=== PATIENT | female | born 1970 | race Caucasian/White ===

== ENCOUNTER → 2016-10-31 | Outpatient (CLI) | payer OTHER ==
--- NOTE | 2016-11-01 08:50 | MM ---
Reason for exam: screening (asymptomatic). Last mammogram was performed 1 year ago. Physical Findings: A clinical breast exam by your physician is recommended on an annual basis and results should be correlated with mammographic findings. MG 3D Screening Mammo W/Cad Bilateral CC and MLO view(s) were taken. Prior study comparison: October 23, 2015, bilateral MG 3d diag mammo w/cad [facility]. March 26, 2015, right breast MG work up mamm w CAD RT. The breast tissue is heterogeneously dense. This may lower the sensitivity of mammography. No significant changes when compared with prior studies. ASSESSMENT: Benign, BI-RAD 2 RECOMMENDATION: Routine screening mammogram of both breasts in 1 year.
== END | disposition home or self-care (01) ==
LOC: RADMAMWWP 15:27
PROVIDERS: ATTEND Family Medicine
DX: Z12.31 Encounter for screening mammogram for malignant neoplasm of breast (principal)
CPT/HCPCS: 77063; G0202

== ENCOUNTER 2016-12-26 23:00 | Emergency (ER) | payer OTHER ==
[2016-12-26 23:18] VITALS: TEMP 98.6
--- NOTE | 2016-12-27 00:31 | ED ---
General Adult HPI - General Chief complaint: Extremity Injury, Lower Stated complaint: Ankle injury Time Seen by Provider: 12/27/16 00:05 Source: patient, family, RN notes reviewed Mode of arrival: ambulatory Limitations: no limitations - History of Present Illness Initial comments: Chief complaint history of present illness this is a 46-year-old female complaint of discomfort to the medial right ankle. Patient reports that she thinks she just slightly twisted it last night around 9 PM on a stick walking up her driveway. Patient reports didn't hurt much at the time but she removed ability started hurt throughout the day became more comfortable. Patient has a small area of redness just proximal to the medial malleolus the left ankle area. No pain to the toes or foot. No pain to the knee. - Related Data Previous Rx's Medication Instructions Recorded Ibuprofen [Motrin] 400 mg PO Q6HR PRN #20 tab 12/27/16 Allergies Allergy/AdvReac Type Severity Reaction Status Date / Time lisinopril Allergy Unknown Verified 12/26/16 23:18 Review of Systems ROS Statement: Those systems with pertinent positive or pertinent negative responses have been documented in the HPI. Review of systems no complaint of any other problems. Past medical problems significant for hypertension and thyroid disorder. Surgeries tubal ligation. Family history father of lung cancer mother had COPD. The patient has ALLERGIES to lisinopril. Nonsmoker drinks alcohol socially. ROS Other: All systems not noted in ROS Statement are negative. Past Medical History Past Medical History: Hypertension, Thyroid Disorder History of Any Multi-Drug Resistant Organisms: None Reported Past Surgical History: Tubal Ligation Past Psychological History: No Psychological Hx Reported Smoking Status: Never smoker Past Alcohol Use History: Occasional Past Drug Use History: None Reported General Exam - General Exam Comments Initial Comments: Physical examination pertinent to the patient's visit was to the right leg and knee is normal. The foot is normal. The patient has a small red area just proximal to the medial malleolus on the right ankle. Neurovascular status is intact. Tenderness with palpation. Discomfort with weightbearing. The patient had no other complaints. Denies falling or injuring her upper extremities. No past history of gout. Limitations: no limitations Course Vital Signs 12/26/16 23:14 Temperature 98.6 F Pulse Rate 88 Respiratory 18 Rate Blood Pressure 151/78 O2 Sat by Pulse 98 Oximetry Medical Decision Making - Medical Decision Making X-ray of the ankle was done in multiple views. Just above the malleolus appears to be either a retained foreign body or small avulsion fracture has been there for a prolonged period of time. In that same area on the ankle as a small red dot where the patient may have gotten a foreign body but she can't remember ever happening in her lifetime. Ankle mortise otherwise well maintained. The patient will be referred to orthopedics for further evaluation. Disposition Clinical Impression: Sprain of ankle, right Disposition: HOME SELF-CARE Condition: Stable Instructions: Ankle Sprain (ED) Additional Instructions: Ice elevate rest use ibuprofen 400 mg every 6 hours for pain. Follow-up with family physician and orthopedic surgeon on-call for further evaluation if discomfort persists. Prescriptions: Ibuprofen [Motrin] 400 mg PO Q6HR PRN #20 tab PRN Reason: Pain Time of Disposition: 00:54
[2016-12-27] MEDS ORDERED: IBUPROFEN 400 MG TAB PO STA (00:52)
--- NOTE | 2016-12-27 01:08 | XR ---
EXAM: XR Right Ankle Complete, 3 or More Views. CLINICAL HISTORY: Reason: Twisted right ankle, medial pain TECHNIQUE: Frontal, lateral and oblique views of the right ankle. COMPARISON: None FINDINGS: Bones/joints: Small ossifications/densities adjacent to the protuberance along the distal right medial tibia may represent small fracture fragments. No other acute fracture identified. No dislocation. Ankle mortise is intact. No bony lesion. No joint effusion. Soft tissues: Soft tissue swelling overlying is the distal medial tibia. IMPRESSION: Small ossification/densities adjacent to the protuberance along the distal right medial tibia may represent small fracture fragments given the overlying focal soft tissue swelling.
[2016-12-27 01:15] VITALS: BP 157/72; PULSE 82; RESP 16
== END 2016-12-27 01:14 | disposition home or self-care (01) ==
LOC: EC 23:00
DX: S93.401A Sprain of unspecified ligament of right ankle, initial encounter (principal); Z88.8 Allergy status to other drugs, medicaments and biological substances; X50.1XXA Overexertion from prolonged static or awkward postures, initial encounter; Y93.01 Activity, walking, marching and hiking; Y92.89 Other specified places as the place of occurrence of the external cause
CPT/HCPCS: 99283

== ENCOUNTER 2017-05-30 14:21 | Emergency (ER) | payer OTHER ==
[2017-05-30] MEDS ORDERED: DIPH,PERTUS(ACELL)TETVAC-LF 0.5 ML VIAL IM ONE (15:27)
--- NOTE | 2017-05-30 15:39 | ED ---
General Adult HPI - General Chief complaint: Wound/Laceration Stated complaint: Laceration on Rt hand Time Seen by Provider: 05/30/17 15:15 Source: patient, RN notes reviewed Mode of arrival: ambulatory Limitations: no limitations - History of Present Illness Initial comments: 46-year-old female presents to the emergency department with a chief complaint of right hand laceration. Patient was cleaning a glass. Since her hands and cut her. Patient states she does not recall her last tetanus. Patient states she has pain with movement still no pain. Patient denies any other injuries from the incident. Patient denies numbness or tingling.Patient denies any recent fever, chills, shortness of breath, chest pain, back pain, abdominal pain , nausea vomiting, numbness or tingling, dysuria or hematuria, constipation or diarrhea, headaches or visual changes, or any other current symptoms. - Related Data Previous Rx's Medication Instructions Recorded Ibuprofen [Motrin] 400 mg PO Q6HR PRN #20 tab 12/27/16 Allergies Allergy/AdvReac Type Severity Reaction Status Date / Time lisinopril Allergy Unknown Verified 05/30/17 14:38 Review of Systems ROS Statement: Those systems with pertinent positive or pertinent negative responses have been documented in the HPI. ROS Other: All systems not noted in ROS Statement are negative. Past Medical History Past Medical History: Hypertension, Thyroid Disorder History of Any Multi-Drug Resistant Organisms: None Reported Past Surgical History: Tubal Ligation Past Psychological History: No Psychological Hx Reported Smoking Status: Never smoker Past Alcohol Use History: Occasional Past Drug Use History: None Reported General Exam - General Exam Comments Initial Comments: General: The patient is awake and alert, in no distress, and does not appear acutely ill. Neck: The neck is supple, there is no tenderness. Cardiovascular: There is a regular rate and rhythm. No murmur, rub or gallop is appreciated. Respiratory: Lungs are clear to auscultation, respirations are non-labored, breath sounds are equal. No wheezes, stridor, rales, or rhonchi. Musculoskeletal: Sensation intact with 2+ pulses throughout the right lower extremity. Full range of motion of the right hand and all digits. 5 out of 5 muscle strength testing. There is a for similar laceration of the base of the right thumb. Range of motion of the right wrist. Neurological: CN II-XII intact, There are no obvious motor or sensory deficits. Coordination appears grossly intact. Speech is normal. Skin: Skin is warm and dry and no rashes or lesions are noted. Psychiatric: Normal mood and affect. Limitations: no limitations Course Vital Signs 05/30/17 14:35 Temperature 98.1 F Pulse Rate 82 Respiratory 20 Rate Blood Pressure 140/89 O2 Sat by Pulse 99 Oximetry Procedures - Procedures Initial comment: The skin was anesthetized with 1% lidocaine. The laceration was then cleansed with Betadine and irrigated with normal saline. The wound was inspected, and there was no evidence of injury to deep structures. No foreign body was noted in the wound. A total of 6 skin sutures were placed utilizing 5-0 nylon to a right thumb laceration of 4 cm in length. Medical Decision Making - Medical Decision Making 46-year-old female presents emergency room chief complaint of right hand laceration. At this time patient an x-ray and suture repair. Discussed care follow-up return parameters outpatient family's questions. They state Louie they're in agreement the plan. They will be discharged home. - Radiology Data Radiology results: report reviewed, image reviewed Disposition Clinical Impression: Laceration of right hand Disposition: HOME SELF-CARE Condition: Stable Instructions: Care For Your Stitches (ED), Laceration (ED) Additional Instructions: Please use medication as discussed. Please follow up with family doctor if symptoms have not improved over the next two days. Please return to the emergency room if your symptoms increase or worsen or for any other concerns. Please return to the emergency room in 8-10 days to have sutures removed. Please leave wound covered for the first 24-48 hours and then leave open to air after that time. Please use clean soap and water to clean the suture area to prevent scabbing over the top of your sutures. Please watch for any signs of infection which may include but not limited to increased pain, swelling, redness , fever or chills. Please return to the emergency room if any signs of infection do occur. Please return to the emergency room for any other concerns or complications. Referrals: Fabian Barraza III, MD [Primary Care Provider] - 1-2 days Time of Disposition: 16:05
--- NOTE | 2017-05-30 15:43 | XR ---
Right hand HISTORY: Laceration between first and second metacarpophalangeal joints 3 views of the right hand No comparisons There is no radiopaque foreign body evident. No fracture or dislocation. Bone mineralization, joint s paces and alignment are maintained. Metallic ring present at the ring finger proximally. Lucency pres ent at the soft tissues between the first and second digits. IMPRESSION: Findings compatible with patient's history of laceration.
[2017-05-30 16:25] VITALS: BP 143/80; PULSE 76; RESP 16; TEMP 98
== END 2017-05-30 16:24 | disposition home or self-care (01) ==
LOC: EC 14:21
DX: S61.411A Laceration without foreign body of right hand, initial encounter (principal); Z23 Encounter for immunization; Z88.8 Allergy status to other drugs, medicaments and biological substances; W25.XXXA Contact with sharp glass, initial encounter
CPT/HCPCS: 12002; 90471; 90715; 99283

== ENCOUNTER 2017-10-06 08:07 | Emergency (ER) | payer OTHER ==
[2017-10-06 08:13] VITALS: BP 179/94; PULSE 88; RESP 18; TEMP 97.1
--- NOTE | 2017-10-06 08:49 | ED ---
General Adult HPI - General Chief complaint: Fall Stated complaint: LACERATION, HEAD INJURY Time Seen by Provider: 10/06/17 08:15 Source: patient, RN notes reviewed Mode of arrival: ambulatory Limitations: no limitations - History of Present Illness Initial comments: Patient is a 47-year-old female who presents emergency room today with a chief complaint of a laceration to the right side of the face. She states that she tripped in her head on a edge of a cabinet causing this laceration. She states her tetanus is up-to-date. She denies any loss of consciousness. Denies any other complaints or symptoms. Patient denies any recent fever, chills, shortness of breath, chest pain, back pain, abdominal pain, nausea or vomiting, numbness or tingling, headaches or visual changes, or any other complaints. - Related Data Home Medications Medication Instructions Recorded Confirmed Levothyroxine Sodium [Synthroid] 50 mcg PO DAILY 10/06/17 10/06/17 Losartan-Hctz 50-12.5 mg [Hyzaar 0.5 tab PO DAILY 10/06/17 10/06/17 50-12.5] Allergies Allergy/AdvReac Type Severity Reaction Status Date / Time lisinopril Allergy Unknown Verified 10/06/17 08:26 Review of Systems ROS Statement: Those systems with pertinent positive or pertinent negative responses have been documented in the HPI. ROS Other: All systems not noted in ROS Statement are negative. Past Medical History Past Medical History: Hypertension, Thyroid Disorder History of Any Multi-Drug Resistant Organisms: None Reported Past Surgical History: Tubal Ligation Past Psychological History: No Psychological Hx Reported Smoking Status: Never smoker Past Alcohol Use History: Occasional Past Drug Use History: None Reported General Exam - General Exam Comments Initial Comments: General: The patient is awake and alert, in no distress, and does not appear acutely ill. Eye: Pupils are equal, round and reactive to light, extra-ocular movements are intact. No nystagmus. There is normal conjunctiva bilaterally. No signs of icterus. Ears, nose, mouth and throat: There are moist mucous membranes and no oral lesions. Neck: The neck is supple, there is no tenderness or JVD. Musculoskeletal: Normal ROM, no tenderness. Strength 5/5. Sensation intact. Pulses equal bilaterally 2+. Neurological: A&O x 3. CN II-XII intact, There are no obvious motor or sensory deficits. Coordination appears grossly intact. Speech is normal. Skin: Patient does have a 2 cm linear laceration running on an angle to the right side of the face lateral to the right eye Psychiatric: Cooperative, appropriate mood & affect, normal judgment. Limitations: no limitations Course Vital Signs 10/06/17 08:10 Temperature 97.1 F L Pulse Rate 88 Respiratory 18 Rate Blood Pressure 179/94 O2 Sat by Pulse 99 Oximetry Procedures - Procedures Initial comment: 2 cm linear laceration to the right face.The skin was anesthetized with 1% lidocaine. The laceration was then cleansed with and irrigated with normal saline. The wound was inspected, and there was no evidence of injury to deep structures. No foreign body was noted in the wound. A total of 5 skin sutures were placed utilizing 5-0 nylon. Disposition Clinical Impression: Facial laceration Disposition: HOME SELF-CARE Condition: Good Instructions: Laceration (ED) Additional Instructions: Please have sutures removed in 5 days. Please use soap and water keep area clean. Wound may stay open to air. Please return for any signs of infection which may include increased pain, swelling, redness, fever or chills. Referrals: Fabian Barraza III, MD [Primary Care Provider] - 1-2 days Time of Disposition: 08:47
== END 2017-10-06 08:54 | disposition home or self-care (01) ==
LOC: EC 08:07
DX: S05.31XA Ocular laceration without prolapse or loss of intraocular tissue, right eye, initial encounter (principal); I10 Essential (primary) hypertension; E07.9 Disorder of thyroid, unspecified; Z88.8 Allergy status to other drugs, medicaments and biological substances; Z79.899 Other long term (current) drug therapy; W01.198A Fall on same level from slipping, tripping and stumbling with subsequent striking against other object, initial encounter
CPT/HCPCS: 12011; 99283

== ENCOUNTER → 2017-11-06 | Outpatient (CLI) | payer OTHER ==
--- NOTE | 2017-11-07 14:20 | MM ---
Reason for exam: screening (asymptomatic). Last mammogram was performed 1 year ago. Physical Findings: A clinical breast exam by your physician is recommended on an annual basis and results should be correlated with mammographic findings. MG Screening Mammo w CAD Bilateral CC and MLO view(s) were taken. Prior study comparison: October 31, 2016, bilateral MG 3d screening mammo w/cad. October 23, 2015, bilateral MG 3d diag mammo w/cad [facility]. The breast tissue is heterogeneously dense. This may lower the sensitivity of mammography. No suspicious abnormality. No significant changes when compared with prior studies. ASSESSMENT: Negative, BI-RAD 1 RECOMMENDATION: Routine screening mammogram of both breasts in 1 year.
== END | disposition home or self-care (01) ==
LOC: RADMAMWWP 14:29
PROVIDERS: ATTEND Family Medicine
DX: Z12.31 Encounter for screening mammogram for malignant neoplasm of breast (principal)
CPT/HCPCS: 77067

== ENCOUNTER → 2018-02-19 | Outpatient (CLI) | payer OTHER ==
--- NOTE | 2018-02-19 16:32 | US ---
EXAMINATION TYPE: US pelvis complete transvag DATE OF EXAM: 02/19/2018 COMPARISON: NONE CLINICAL HISTORY: R10.2 pelvic and perineal pain, N93.8 abnormal. missed the last 2 cycles, rlq cramp ing TECHNIQUE: TA and TV. Transabdominal sonographic images of the pelvis were acquired. Endovaginal s alec performed for better evaluation of the ovaries and uterus. Date of LMP: 11/30/2017 EXAM MEASUREMENTS: Uterus: 10.6 x 5.3 x 4.9 cm Endometrial Stripe: 1.1 cm Right Ovary: 3.2 x 2.7 x 2.6 cm Left Ovary: 1.5 x 1.7 x 1.4 cm 1. Uterus: Anteverted nabothian cyst seen within cervix 2. Endometrium: wnl 3. Right Ovary: 2.2cm slightly irregular walled cyst seen 4. Left Ovary: Probable involuting cyst suspected measuring 1.5 cm. 5. Bilateral Adnexa: wnl 6. Posterior cul-de-sac: wnl IMPRESSION: Right ovarian cyst is not simple appearing, consider follow-up, [employer] consult.
== END | disposition home or self-care (01) ==
LOC: RADUSWWP 14:52
PROVIDERS: ATTEND Family Medicine
DX: N93.8 Other specified abnormal uterine and vaginal bleeding (principal); R10.2 Pelvic and perineal pain
CPT/HCPCS: 76830; 76856

== ENCOUNTER → 2018-04-06 | Outpatient (CLI) | payer OTHER ==
--- NOTE | 2018-04-06 14:29 | US ---
EXAMINATION TYPE: US pelvis complete transvag DATE OF EXAM: 04/06/2018 COMPARISON: 02/19/2018 pelvic ultrasound. CLINICAL HISTORY: N83.201 Unspecified ovarian cyst, right side. Hx of right side ovarian cyst TECHNIQUE: . Transabdominal sonographic images of the pelvis were acquired. Transvaginal sonographi c images were medically necessary to better assess the following anatomy: Uterus and ovaries Date of LMP: Unsure, irregular cycles EXAM MEASUREMENTS: Uterus: 8.6 x 5.1 x 5.4 cm Endometrial Stripe: 1.0 cm Right Ovary: 2.5 x 1.5 x 1.4 cm Left Ovary: 2.4 x 1.4 x 2.0 cm 1. Uterus: Anteverted. Hypoechoic area visualized within the anterior myometrium measuring 1.6 x 1.5 x 1.5 cm, possible fibroid. Vague hyperechoic area posterior myometrium is suspicious for additional roughly 2 cm fibroid unchanged from prior. Nabothian cyst visualized with cervix. 2. Endometrium: wnl 3. Right Ovary: Thick walled cystic area visualized measuring 1.1 x 1.1 x 1.2 cm on today's exam. Th is area measured 2.2 x 2.3 x 2.0 cm on 02/19/2018. Two other simple appearing follicles visualized. 4. Left Ovary: wnl 5. Bilateral Adnexa: wnl 6. Posterior cul-de-sac: wnl Slightly irregular thin-walled cyst or cystic lesion right ovary measures 1.[address] current [address] udy diminished in size from prior felt to reflect involuting cyst. IMPRESSION: Involuting cyst right ovary noted consistent with benign etiology
== END | disposition home or self-care (01) ==
LOC: RADUSWWP 13:31
PROVIDERS: ATTEND Obstetrics & Gynecology
DX: N83.201 Unspecified ovarian cyst, right side (principal)
CPT/HCPCS: 76830; 76856

== ENCOUNTER → 2018-10-18 | Outpatient (CLI) | payer BC ==
--- NOTE | 2018-10-20 09:05 | ECHOF ---
Referral Reason:R01.1 Murmur MEASUREMENTS -------- HEIGHT: 149.9 cm WEIGHT: 52.2 kg BP: 174/98 IVSd: 0.8 cm (0.6 - 1.1) LVIDd: 3.8 cm (3.9 - 5.3) LVPWd: 0.8 cm (0.6 - 1.1) IVSs: 1.2 cm LVIDs: 2.2 cm LVPWs: 1.1 cm LA Diam: 2.4 cm (2.7 - 3.8) RVIDd: 2.7 cm (< 3.3) LAESV Index (A-L): 15.41 ml/m Ao Diam: 2.6 cm (2.0 - 3.7) AV Cusp: 1.4 cm (1.5 - 2.6) EPSS: 0.4 cm MV E Walker: 0.91 m/s MV DecT: 197 ms MV A Walker: 1.30 m/s MV E/A Ratio: 0.70 AV maxP.64 mmHg AV meanP.78 mmHg MV EF SLOPE: 72.83 mm/s (70 - 150) MV EXCURSION: 10.02 mm (> 18.000) FINDINGS -------- Resting tachycardia (HR>100bpm). This was a technically adequate study. The left ventricular size is normal. Left ventricular wall thickness is normal. Overall left vent ricular systolic function is normal with, an EF between 65 - 70 %. The right ventricle is normal in size. Normal LA size by volume 22+/-6 ml/m2. The right atrium is normal in size. There is mild aortic valve sclerosis. There is mild aortic stenosis present. Peak/mean gradient a cross the Aortic Valve is 15.64mmHg / 7.78mmHg. The mitral valve is normal. Mild tricuspid regurgitation present. Trace/mild (physiologic) pulmonic regurgitation. The aortic root size is normal. Normal inferior vena cava with normal inspiratory collapse consistent with estimated right atrial pre ssure of 5 mmHg. There is no pericardial effusion. CONCLUSIONS -------- 1. Resting tachycardia (HR>100bpm). 2. This was a technically adequate study. 3. The left ventricular size is normal. 4. Left ventricular wall thickness is normal. 5. Overall left ventricular systolic function is normal with, an EF between 65 - 70 %. 6. The right ventricle is normal in size. 7. Normal LA size by volume 22+/-6 ml/m2. 8. The right atrium is normal in size. 9. There is mild aortic valve sclerosis. 10. There is mild aortic stenosis present. 11. Peak/mean gradient across the Aortic Valve is 15.64mmHg / 7.78mmHg. 12. The mitral valve is normal. 13. Mild tricuspid regurgitation present. 14. Trace/mild (physiologic) pulmonic regurgitation. 15. The aortic root size is normal. 16. Normal inferior vena cava with normal inspiratory collapse consistent with estimated right atrial pressure of 5 mmHg. 17. There is no pericardial effusion. WRAPPER HAND: Nazanin Ye RDCS
== END | disposition home or self-care (01) ==
LOC: RADECHMAIN 16:05
PROVIDERS: ATTEND Physician Assistant Medical
DX: I35.8 Other nonrheumatic aortic valve disorders (principal); I35.0 Nonrheumatic aortic (valve) stenosis; I07.1 Rheumatic tricuspid insufficiency; I37.1 Nonrheumatic pulmonary valve insufficiency
CPT/HCPCS: 93306

== ENCOUNTER 2018-11-03 10:59 | Observation (INO) | payer BC ==
[2018-11-03] MEDS ORDERED: NITROGLYCERIN SL TABS 0.4 MG TAB SUBLINGUAL STA ×3 (11:15)
[2018-11-03] MEDS ORDERED: ASPIRIN 81 MG PO STA (11:15)
--- NOTE | 2018-11-03 11:18 | ED ---
General Adult HPI - General Chief complaint: Chest Pain Stated complaint: chest pain Time Seen by Provider: 11/03/18 11:08 Source: patient, RN notes reviewed Mode of arrival: ambulatory Limitations: no limitations - History of Present Illness Initial comments: Patient is a pleasant 48-year-old female presenting to the emergency Department with complaints of chest discomfort. Symptoms have been waxing and waning over the past week. Discomfort is currently 6/10. Symptoms worsened with exertion, especially shoveling snow. Discomfort feels a pressure in the central chest. No radiation. When symptoms worsen there is associated dyspnea, nausea, and diaphoresis however none of that at this point. No history of similar symptoms previously. - Related Data Home Medications Medication Instructions Recorded Confirmed Losartan-Hctz 50-12.5 mg [Hyzaar 1 tab PO DAILY 10/06/17 11/03/18 50-12.5] Cyanocobalamin (Vitamin B-12) 1,000 mcg PO DAILY 11/03/18 11/03/18 [Vitamin B-12] Fluticasone Nasal [place] [Flonase 1 spray EA NOSTRIL DAILY PRN 11/03/18 11/03/18 Nasal [place]] Ibuprofen [Motrin] 400 - 800 mg PO Q6HR PRN 11/03/18 11/03/18 Levothyroxine Sodium [Synthroid] 88 mcg PO DAILY 11/03/18 11/03/18 Allergies Allergy/AdvReac Type Severity Reaction Status Date / Time lisinopril Allergy Unknown Verified 11/03/18 11:28 Review of Systems ROS Statement: Those systems with pertinent positive or pertinent negative responses have been documented in the HPI. ROS Other: All systems not noted in ROS Statement are negative. Constitutional: Denies: fever Eyes: Denies: eye pain ENT: Denies: ear pain Respiratory: Reports: as per HPI. Denies: cough Cardiovascular: Reports: as per HPI, chest pain Endocrine: Denies: fatigue Gastrointestinal: Denies: vomiting Genitourinary: Denies: dysuria Musculoskeletal: Denies: back pain Skin: Denies: rash Neurological: Denies: weakness Past Medical History Past Medical History: Hypertension, Thyroid Disorder Additional Past Medical History / Comment(s): aortic stenosis History of Any Multi-Drug Resistant Organisms: None Reported Past Surgical History: Tubal Ligation Past Psychological History: No Psychological Hx Reported Smoking Status: Never smoker Past Alcohol Use History: Occasional Past Drug Use History: None Reported General Exam Limitations: no limitations General appearance: alert, in no apparent distress Head exam: Present: atraumatic Eye exam: Present: normal appearance, PERRL ENT exam: Present: normal oropharynx Neck exam: Present: normal inspection Respiratory exam: Present: normal lung sounds bilaterally. Absent: chest wall tenderness Cardiovascular Exam: Present: regular rate, normal rhythm, systolic murmur (Mild ) Expanded Peripheral pulses: 2+: Radial (R), Radial (L), Posterior Tibialis (R), Posterior Tibialis (L), Dorsalis Pedis (R), Dorsalis Pedis (L) GI/Abdominal exam: Present: soft. Absent: tenderness Extremities exam: Present: normal inspection. Absent: pedal edema, calf tenderness Neurological exam: Present: alert Psychiatric exam: Present: normal affect, normal mood Skin exam: Present: normal color Course Vital Signs 11/03/18 11:04 Temperature 98.1 F Pulse Rate 77 Respiratory 20 Rate Blood Pressure 162/82 O2 Sat by Pulse 100 Oximetry EKG Findings - EKG Comments: EKG Findings:: Normal sinus rhythm 80. OH 126. QRS 72. QT 390. QTC 449. Normal axis. Normal QRS. No acute ST change Medical Decision Making - Medical Decision Making Patient reevaluated and improved following nitroglycerin. Patient updated on results and plan. Case was discussed in detail with Dr. Larson, covering for Dr. Barraza, who will admit. - Lab Data Result diagrams: 11/03/18 11:20 11/03/18 11:20 Lab Results 11/03/18 11/03/18 11/03/18 Range/Units 11:20 11:20 11:20 WBC 11.1 H (3.8-10.6) k/uL RBC 4.44 (3.80-5.40) m/uL Hgb 13.4 (11.4-16.0) gm/dL Hct 39.8 (34.0-46.0) % MCV 89.5 (80.0-100.0) fL MCH 30.1 (25.0-35.0) pg MCHC 33.7 (31.0-37.0) g/dL RDW 13.1 (11.5-15.5) % Plt Count 434 (150-450) k/uL Neutrophils % 80 % Lymphocytes % 14 % Monocytes % 4 % Eosinophils % 1 % Basophils % 0 % Neutrophils # 8.8 H (1.3-7.7) k/uL Lymphocytes # 1.5 (1.0-4.8) k/uL Monocytes # 0.4 (0-1.0) k/uL Eosinophils # 0.1 (0-0.7) k/uL Basophils # 0.0 (0-0.2) k/uL PT (9.0-12.0) sec INR (<1.2) APTT (22.0-30.0) sec Sodium 140 (137-145) mmol/L Potassium 4.2 (3.5-5.1) mmol/L Chloride 104 (98-107) mmol/L Carbon Dioxide 25 (22-30) mmol/L Anion Gap 11 mmol/L BUN 12 (7-17) mg/dL Creatinine 0.80 (0.52-1.04) mg/dL Est GFR (CKD-EPI)AfAm >90 (>60 ml/min/1.73 sqM) Est GFR (CKD-EPI)NonAf 89 (>60 ml/min/1.73 sqM) Glucose 111 H (74-99) mg/dL Calcium 10.3 H (8.4-10.2) mg/dL Magnesium 1.6 (1.6-2.3) mg/dL Total Bilirubin 0.8 (0.2-1.3) mg/dL AST 29 (14-36) U/L ALT 40 (9-52) U/L Alkaline Phosphatase 30 L (38-126) U/L Total Creatine Kinase 53 (30-135) U/L CK-MB (CK-2) 0.3 (0.0-2.4) ng/mL CK-MB (CK-2) Rel Index 0.6 Troponin I <0.012 (0.000-0.034) ng/mL Total Protein 8.1 (6.3-8.2) g/dL Albumin 5.0 (3.5-5.0) g/dL 11/03/18 Range/Units 11:20 WBC (3.8-10.6) k/uL RBC (3.80-5.40) m/uL Hgb (11.4-16.0) gm/dL Hct (34.0-46.0) % MCV (80.0-100.0) fL MCH (25.0-35.0) pg MCHC (31.0-37.0) g/dL RDW (11.5-15.5) % Plt Count (150-450) k/uL Neutrophils % % Lymphocytes % % Monocytes % % Eosinophils % % Basophils % % Neutrophils # (1.3-7.7) k/uL Lymphocytes # (1.0-4.8) k/uL Monocytes # (0-1.0) k/uL Eosinophils # (0-0.7) k/uL Basophils # (0-0.2) k/uL PT 10.8 (9.0-12.0) sec INR 1.0 (<1.2) APTT 25.6 (22.0-30.0) sec Sodium (137-145) mmol/L Potassium (3.5-5.1) mmol/L Chloride (98-107) mmol/L Carbon Dioxide (22-30) mmol/L Anion Gap mmol/L BUN (7-17) mg/dL Creatinine (0.52-1.04) mg/dL Est GFR (CKD-EPI)AfAm (>60 ml/min/1.73 sqM) Est GFR (CKD-EPI)NonAf (>60 ml/min/1.73 sqM) Glucose (74-99) mg/dL Calcium (8.4-10.2) mg/dL Magnesium (1.6-2.3) mg/dL Total Bilirubin (0.2-1.3) mg/dL AST (14-36) U/L ALT (9-52) U/L Alkaline Phosphatase (38-126) U/L Total Creatine Kinase (30-135) U/L CK-MB (CK-2) (0.0-2.4) ng/mL CK-MB (CK-2) Rel Index Troponin I (0.000-0.034) ng/mL Total Protein (6.3-8.2) g/dL Albumin (3.5-5.0) g/dL - Radiology Data Radiology results: image reviewed (Chest x-ray shows no acute process) Disposition Clinical Impression: Chest pain Disposition: ADMITTED IP TO THIS HOSP Is patient prescribed a controlled substance at d/c from ED?: No Referrals: Fabian Barraza III, MD [Primary Care Provider] - 1-2 days Decision Time: 12:40
[2018-11-03 11:46] LABS: Basophils % (A) 0 %; Eosinophils # (A) 0.1 k/uL (0-0.7); Eosinophils % (A) 1 %; HCT 39.8 % (34.0-46.0); HGB 13.4 gm/dL (11.4-16.0); Lymphocytes # (A) 1.5 k/uL (1.0-4.8); Lymphocytes % (A) 14 %; MCH 30.1 pg (25.0-35.0); MCHC 33.7 g/dL (31.0-37.0); MCV 89.5 fL (80.0-100.0); Mean Platelet Volume 6.2; Monocytes # (A) 0.4 k/uL (0-1.0); Monocytes % (A) 4 %; Neutrophils # (A) 8.8 k/uL (1.3-7.7); Neutrophils % (A) 80 %; Platelet Count 434 k/uL (150-450); RBC 4.44 m/uL (3.80-5.40); RDW 13.1 % (11.5-15.5); WBC 11.1 k/uL (3.8-10.6)
[2018-11-03 11:52] LABS: Partial Thromboplastin Time 25.6 sec (22.0-30.0); Prothrombin Time 10.8 sec (9.0-12.0)
--- NOTE | 2018-11-03 11:56 | XR ---
EXAMINATION TYPE: XR chest 2V DATE OF EXAM: 11/03/2018 COMPARISON: NONE HISTORY: Chest pain TECHNIQUE: Frontal and lateral views of the chest are obtained. FINDINGS: There is no focal air space opacity. No evidence for pneumothorax. No pleural effusion. The cardiac silhouette size is within normal limits. The osseous structures are grossly intact. IMPRESSION: 1. No acute cardiopulmonary process.
[2018-11-03 11:57] LABS: ALT 40 U/L (9-52); AST 29 U/L (14-36); Alkaline Phosphatase 30 U/L (38-126); Anion Gap 11 mmol/L; Blood Urea Nitrogen 12 mg/dL (7-17); Calcium 10.3 mg/dL (8.4-10.2); Carbon Dioxide 25 mmol/L (22-30); Chloride 104 mmol/L (98-107); Glucose 111 mg/dL (74-99); Magnesium 1.6 mg/dL (1.6-2.3); Potassium 4.2 mmol/L (3.5-5.1); Sodium 140 mmol/L (137-145); Total Bilirubin 0.8 mg/dL (0.2-1.3); Total Protein 8.1 g/dL (6.3-8.2)
[2018-11-03 12:04] LABS: Creatine Kinase 53 U/L (30-135)
[2018-11-03 12:17] LABS: Creatine Kinase MB 0.3 ng/mL (0.0-2.4); Troponin I <0.012 ng/mL (0.000-0.034)
[2018-11-03] MEDS ORDERED: NITROGLYCERIN SL TABS 0.4 MG TAB SUBLINGUAL PRN (12:40)
--- NOTE | 2018-11-03 16:44 | P.HPIM ---
History of Present Illness Chief Complaint: Chest pain There is a very pleasant 48-year-old female past medical history significant for hypertension and hyperlipidemia comes in for chest pain. Patient says that she's been having chest pain on and off for the last few weeks. The chest pain would be associated with shortness of breath lightheadedness and dizziness. She said that the chest pain was more heaviness in the chest neck summary was sitting on her and she rated about 7 x 10 intensity. There was no radiation of the pain. He said that whenever she exerts herself she has this symptoms along with shortness of breath. She otherwise does not complain of any abdominal pain , no nausea and vomiting, or diarrhea constipation, no headache, loss of vision or blurry vision, no tingling numbness on in the extremities, no itch or rash. ER course-patient's vitals were stable. General lab work 1 and showed abuse 11.1 hemoglobin 13.4 sodium 140 potassium 4.2 B1 12 creatinine 0.80 troponin level less than 0.012. Chest x-ray shows no acute process, EKG shows normal sinus rhythm. Patient was admitted to the hospitalist service for further evaluation and management with cardiology consult Review of Systems All systems: negative Past Medical History Past Medical History: Hypertension, Thyroid Disorder Additional Past Medical History / Comment(s): aortic stenosis History of Any Multi-Drug Resistant Organisms: None Reported Past Surgical History: Tubal Ligation Past Psychological History: No Psychological Hx Reported Smoking Status: Never smoker Past Alcohol Use History: Occasional Past Drug Use History: None Reported Medications and Allergies Home Medications Medication Instructions Recorded Confirmed Type Losartan-Hctz 50-12.5 mg [Hyzaar 1 tab PO DAILY 10/06/17 11/03/18 History 50-12.5] Cyanocobalamin (Vitamin B-12) 1,000 mcg PO DAILY 11/03/18 11/03/18 History [Vitamin B-12] Fluticasone Nasal [place] [Flonase 1 spray EA NOSTRIL DAILY PRN 11/03/18 11/03/18 History Nasal [place]] Ibuprofen [Motrin] 400 - 800 mg PO Q6HR PRN 11/03/18 11/03/18 History Levothyroxine Sodium [Synthroid] 88 mcg PO DAILY 11/03/18 11/03/18 History Allergies Allergy/AdvReac Type Severity Reaction Status Date / Time lisinopril Allergy Unknown Verified 11/03/18 11:28 Physical Exam Vitals: Vital Signs Temp Pulse Pulse Resp BP BP Pulse Ox 11/03/18 16:15 99 11/03/18 15:58 98.3 F 95 16 145/87 98 11/03/18 15:00 73 15 137/83 100 11/03/18 14:00 66 10 L 113/75 100 11/03/18 13:00 64 16 119/82 100 11/03/18 12:00 73 15 129/73 100 11/03/18 11:25 85 16 98 11/03/18 11:04 98.1 F 77 20 162/82 100 Intake and Output 11/03/18 11/03/18 11/03/18 06:59 14:59 22:59 Other: Weight 52.163 kg On exam, alert and oriented x3. HEENT: Conjunctivae normal. eyes normal. NECK: No JVD. No thyroid enlargement. No LNs CARDIOVASCULAR: S1-S2 positive mild murmur appreciated RESPIRATION: Normal breath sounds, no rhonchi or rales and wheezing ABDOMEN: Soft, nontender . No guarding. no masses palpable. No ascites, No hepatosplenomegaly.Bowel sounds heard. LEGS: No edema. no swelling NERVOUS SYSTEM: Cranial N 2-12 grossly normal. Moves all 4 limbs. No focal deficits. No sensory deficit. No signs of cerebellar dysfucntion. Skin: no ulcer no rash Results CBC & Chem 7: 11/03/18 11:20 11/03/18 11:20 Labs: Abnormal Lab Results - Last 24 Hours (Table) 11/03/18 11/03/18 Range/Units 11:20 11:20 WBC 11.1 H (3.8-10.6) k/uL Neutrophils # 8.8 H (1.3-7.7) k/uL Glucose 111 H (74-99) mg/dL Calcium 10.3 H (8.4-10.2) mg/dL Alkaline Phosphatase 30 L (38-126) U/L Assessment and Plan Assessment: - Chest pain need to rule out the cause - History of hypertension - History of hyperlipidemia - Recent diagnosis of aortic stenosis Plan - We'll admit the patient to observation with telemetry - We'll monitor troponin levels - We'll order for d-dimer levels - We'll resume patient's home medications - Cardiology consulted - Patient will be nothing by mouth after midnight - DVT and GI prophylaxis - We'll order for lab work in the morning - Patient is an observation - Patient is full code Time with Patient: Greater than 30
[2018-11-03] MEDS ORDERED: FLUTICASONE 50MCG/SPRAY NASAL 16GM EA NOSTRIL PRN (16:46)
[2018-11-03 18:12] LABS: Creatine Kinase 50 U/L (30-135)
[2018-11-03 18:22] LABS: Creatine Kinase MB 0.2 ng/mL (0.0-2.4); Troponin I <0.012 ng/mL (0.000-0.034)
[2018-11-03] MEDS: NITROGLYCERIN OINT 1 INCH/GM PACKET TOPICAL SCH (18:35)
[2018-11-03 22:05] LABS: Cholesterol 217 mg/dL (<200); HDL Cholesterol 50 mg/dL (40-60); LDL Cholesterol,Calculated 143 mg/dL (0-99); Triglycerides 120 mg/dL (<150)
[2018-11-04] MEDS: NITROGLYCERIN OINT 1 INCH/GM PACKET TOPICAL SCH ×5 (00:06→23:19)
[2018-11-04 00:48] LABS: Creatine Kinase 46 U/L (30-135)
[2018-11-04 01:02] LABS: Creatine Kinase MB <0.2 ng/mL (0.0-2.4); Troponin I <0.012 ng/mL (0.000-0.034)
[2018-11-04] MEDS: LEVOTHYROXINE 88 MCG TAB PO SCH (04:59)
--- NOTE | 2018-11-04 09:03 | P.CRDCN ---
History of Present Illness Consult date: 11/04/18 Requesting physician: Ruth Larson Consult reason: chest pain Chief complaint: Chest pain History of present illness: This is a 48-year-old female with history of hypertension, hyperlipidemia untreated, hypothyroidism,family history of premature coronary artery disease in her brother who has undergone coronary bypass grafting surgery. She presents to the hospital with symptoms of chest pressure and heaviness with associated shortness of breath diaphoresis and dizziness. According to the patient the symptoms have been off-and-on for the past couple of weeks, she notices it mostly when she exerts herself. She states that while shoveling the snow doing light exercise she developed symptoms, symptoms subside with rest. Her EKG on presentation here shows normal sinus rhythm with no acute changes. Her troponins have been negative 3. Chest x-ray did not reveal any acute cardiopulmonary process. Patient did have a echocardiogram with Doppler study performed on October 18 because of an audible heart murmur, which showed a normal left ventricular systolic function with mild aortic stenosis. At the time of my examination this morning she is currently chest pain-free. White blood cell count 11.1, hemoglobin 13.4, platelet count 434. D -dimer 0.18. Sodium 140, potassium 4.2, BUN 12, creatinine 0.8. Cholesterol 217, HDL 50 and LDL 143. His negative 3. Past Medical History Past Medical History: Hypertension, Thyroid Disorder Additional Past Medical History / Comment(s): aortic stenosis History of Any Multi-Drug Resistant Organisms: None Reported Past Surgical History: Tubal Ligation Past Anesthesia/Blood Transfusion Reactions: No Reported Reaction Past Psychological History: No Psychological Hx Reported Smoking Status: Never smoker Past Alcohol Use History: Occasional Past Drug Use History: None Reported Medications and Allergies Home Medications Medication Instructions Recorded Confirmed Type Losartan-Hctz 50-12.5 mg [Hyzaar 1 tab PO DAILY 10/06/17 11/03/18 History 50-12.5] Cyanocobalamin (Vitamin B-12) 1,000 mcg PO DAILY 11/03/18 11/03/18 History [Vitamin B-12] Fluticasone Nasal [place] [Flonase 1 spray EA NOSTRIL DAILY PRN 11/03/18 11/03/18 History Nasal [place]] Ibuprofen [Motrin] 400 - 800 mg PO Q6HR PRN 11/03/18 11/03/18 History Levothyroxine Sodium [Synthroid] 88 mcg PO DAILY 11/03/18 11/03/18 History Allergies Allergy/AdvReac Type Severity Reaction Status Date / Time lisinopril Allergy Unknown Verified 11/03/18 11:28 Physical Exam Vitals: Vital Signs Temp Pulse Pulse Resp BP BP Pulse Ox 11/04/18 08:00 98.1 F 77 16 121/75 100 11/04/18 04:00 15 11/04/18 03:50 98.3 F 70 15 121/83 96 11/04/18 00:00 98.2 F 60 15 128/68 96 11/03/18 20:00 15 11/03/18 18:54 98.4 F 87 15 119/79 97 11/03/18 16:15 99 11/03/18 16:00 95 16 11/03/18 15:58 98.3 F 95 16 145/87 98 11/03/18 15:00 73 15 137/83 100 11/03/18 14:00 66 10 L 113/75 100 11/03/18 13:00 64 16 119/82 100 11/03/18 12:00 73 15 129/73 100 11/03/18 11:25 85 16 98 11/03/18 11:04 98.1 F 77 20 162/82 100 Intake and Output 11/03/18 11/04/18 11/04/18 22:59 06:59 14:59 Intake Total 0 Balance 0 Intake: Oral 0 Other: Voiding Method Toilet Toilet Toilet # Voids 2 1 PHYSICAL EXAMINATION: GENERAL: 48-year-old female in no acute distress at the time of my examination HEENT: Head is atraumatic, normocephalic. Pupils equal, round. Sclera anicteric. Conjunctiva are clear. Mucous membranes of the mouth are moist. Neck is supple. There is no elevated jugular venous pressure. No carotid bruit is heard. HEART EXAMINATION: Heart S1, S2 systolic ejection murmur. CHEST EXAMINATION: Lungs are clear to auscultation and precussion. No chest wall tenderness is noted on palpation or with deep breathing. ABDOMEN: Soft, nontender. Bowel sounds are heard. No organomegaly noted. EXTREMITIES: 2+ peripheral pulses with no evidence of peripheral edema and no calf tenderness noted. NEUROLOGIC patient is awake, alert and oriented 3 . . Results 11/03/18 11:20 11/03/18 11:20 Cardiac Enzymes 11/03/18 11/03/18 11/03/18 Range/Units 11:20 11:20 17:20 AST 29 (14-36) U/L CK-MB (CK-2) 0.3 0.2 (0.0-2.4) ng/mL Troponin I <0.012 <0.012 (0.000-0.034) ng/mL 11/03/18 Range/Units 23:44 AST (14-36) U/L CK-MB (CK-2) <0.2 (0.0-2.4) ng/mL Troponin I <0.012 (0.000-0.034) ng/mL Coagulation 11/03/18 Range/Units 11:20 PT 10.8 (9.0-12.0) sec APTT 25.6 (22.0-30.0) sec Lipids 11/03/18 Range/Units 11:20 Triglycerides 120 (<150) mg/dL Cholesterol 217 H (<200) mg/dL HDL Cholesterol 50 (40-60) mg/dL CBC 11/03/18 Range/Units 11:20 WBC 11.1 H (3.8-10.6) k/uL RBC 4.44 (3.80-5.40) m/uL Hgb 13.4 (11.4-16.0) gm/dL Hct 39.8 (34.0-46.0) % Plt Count 434 (150-450) k/uL Comprehensive Metabolic Panel 11/03/18 Range/Units 11:20 Sodium 140 (137-145) mmol/L Potassium 4.2 (3.5-5.1) mmol/L Chloride 104 (98-107) mmol/L Carbon Dioxide 25 (22-30) mmol/L BUN 12 (7-17) mg/dL Creatinine 0.80 (0.52-1.04) mg/dL Glucose 111 H (74-99) mg/dL Calcium 10.3 H (8.4-10.2) mg/dL AST 29 (14-36) U/L ALT 40 (9-52) U/L Alkaline Phosphatase 30 L (38-126) U/L Total Protein 8.1 (6.3-8.2) g/dL Albumin 5.0 (3.5-5.0) g/dL Current Medications Generic Name Dose Route Start Last Admin Trade Name Freq PRN Reason Stop Dose Admin Aspirin 325 mg 11/04/18 09:00 Aspirin PO DAILY [facility] Cyanocobalamin 1,000 mcg 11/04/18 09:00 Vitamin B-12 PO DAILY [facility] Fluticasone Propionate 1 spray 11/03/18 16:46 Flonase Nasal [place] EA NOSTRIL DAILY PRN Allergy Symptoms HCTZ/Losartan Potassium 1 each 11/04/18 09:00 Hyzaar 50-12.5 PO DAILY [facility] Levothyroxine Sodium 88 mcg 11/04/18 06:30 11/04/18 04:59 Synthroid PO Not Given DAILY@0630 [facility] Nitroglycerin 1 inch 11/03/18 18:00 11/04/18 04:55 Nitro-Bid Oint TOPICAL Not Given Q6HR [facility] Nitroglycerin 0.4 mg 11/03/18 12:40 Nitrostat SUBLINGUAL Q5M PRN Chest Pain Sodium Chloride 10 ml 11/03/18 21:00 11/04/18 01:09 Saline Flush IV 10 ml BID VIVIANA Administration Intake and Output 11/03/18 11/04/18 11/04/18 22:59 06:59 14:59 Intake Total 0 Balance 0 Intake: Oral 0 Other: Voiding Method Toilet Toilet Toilet # Voids 2 1 11/03/18 11:20 11/03/18 11:20 EKG Interpretations (text) EKG shows normal sinus rhythm with no acute changes. Assessment and Plan Plan: Assessment and plan #1 chest pain, suggestive of possible angina. Troponins negative 3. EKG shows normal sinus rhythm with no acute changes. #2 hypertension #3 hypothyroidism #4 hyperlipidemia, untreated #5 family history of premature coronary artery disease Plan Patient had a recent echo performed on October 18 which revealed a normal left ventricular systolic function. Patient has been advised to undergo further testing to rule out underlying coronary artery disease by the way of nuclear stress test, this will be performed tomorrow. Further recommendations will be based on these findings. DNP note has been reviewed, I agree with a documented findings and plan of care. Patient was seen and examined.
[2018-11-04] MEDS: CYANOCOBALAMIN 500 MCG TAB PO SCH (09:31)
[2018-11-04] MEDS: ASPIRIN 325 MG TAB PO SCH (09:31)
[2018-11-04] MEDS: LOSARTAN-HCTZ 50-12.5 MG 1 EACH TAB PO SCH (09:31)
--- NOTE | 2018-11-04 13:38 | P.PN ---
Subjective Patient says that she has mild discomfort but she's feeling better than yesterday No shortness of breath or cough Rest of the review of systems negative Objective - Vital Signs Vital signs: Vital Signs Temp 98.1 F 11/04/18 12:00 Pulse 67 11/04/18 12:00 Resp 14 11/04/18 12:00 BP 139/84 11/04/18 12:00 Pulse Ox 98 11/04/18 12:00 Intake & Output 11/03/18 11/04/18 11/04/18 18:59 06:59 18:59 Intake Total 0 Balance 0 Weight 52.163 kg Intake: Oral 0 Other: Voiding Method Toilet Toilet Toilet # Voids 1 - Exam On exam, alert and oriented x3. HEENT: Conjunctivae normal. eyes normal. NECK: No JVD. No thyroid enlargement. No LNs CARDIOVASCULAR: S1, S2 muffled. No murmur RESPIRATION: Breath sounds diminished in the bases. No rhonchi or crackles. No bronchial breathing. ABDOMEN: Soft, nontender . No guarding. no masses palpable. No ascites, No hepatosplenomegaly.Bowel sounds heard. LEGS: No edema. no swelling NERVOUS SYSTEM: Cranial N 2-12 grossly normal. Moves all 4 limbs. No focal deficits. No sensory deficit. No signs of cerebellar dysfucntion. Skin: no ulcer no rash Joints: No active swelling. No inflammation. Lymphatic system. No LN neck axilla or groin. - Labs CBC & Chem 7: 11/03/18 11:20 11/03/18 11:20 Labs: Abnormal Lab Results - Last 24 Hours (Table) 11/03/18 Range/Units 11:20 Cholesterol 217 H (<200) mg/dL LDL Cholesterol, Calc 143 H (0-99) mg/dL Assessment and Plan Assessment: - Chest pain need to rule out the cause - History of hypertension - History of hyperlipidemia - Recent diagnosis of aortic stenosis Plan - Tropes and d-dimer has been negative so far - Plan for stress test in the morning - Continue rest of the medical care - Patient to be nothing by mouth after midnight - We'll continue to monitor the patient Time with Patient: Greater than 30
[2018-11-04 19:59] VITALS: RESP 18
[2018-11-04] MEDS ORDERED: ATORVASTATIN 80 MG TAB PO SCH (21:00)
[2018-11-05 06:05] LABS: HCT 38.7 % (34.0-46.0); HGB 12.9 gm/dL (11.4-16.0); MCH 30.7 pg (25.0-35.0); MCHC 33.2 g/dL (31.0-37.0); MCV 92.4 fL (80.0-100.0); Mean Platelet Volume 6.2; Platelet Count 373 k/uL (150-450); RBC 4.18 m/uL (3.80-5.40); RDW 13.2 % (11.5-15.5); WBC 8.1 k/uL (3.8-10.6)
[2018-11-05] MEDS: NITROGLYCERIN OINT 1 INCH/GM PACKET TOPICAL SCH (06:05)
[2018-11-05] MEDS: LEVOTHYROXINE 88 MCG TAB PO SCH (06:07)
[2018-11-05 06:13] LABS: Anion Gap 8 mmol/L; Blood Urea Nitrogen 14 mg/dL (7-17); Calcium 9.6 mg/dL (8.4-10.2); Carbon Dioxide 27 mmol/L (22-30); Chloride 103 mmol/L (98-107); Glucose 122 mg/dL (74-99); Potassium 4.3 mmol/L (3.5-5.1); Sodium 138 mmol/L (137-145)
[2018-11-05] MEDS: CYANOCOBALAMIN 500 MCG TAB PO SCH (07:21)
[2018-11-05] MEDS: ASPIRIN 325 MG TAB PO SCH (07:21)
--- NOTE | 2018-11-05 10:53 | P.PN ---
Subjective This is a pleasant 48 showed female past medical history significant for hypertension and dyslipidemia. She presented to the hospital with symptoms of heavy pressure sensation across her entire chest with shortness of breath, lightheaded and diaphoretic. She is scheduled to undergo a Cardiolite stress test this morning. She is seen and examined in no acute distress. She continues to complain of a dull pressure sensation in the chest that does not change with exertion. She underwent an echocardiogram as an outpatient in September of this year which revealed normal LV systolic function with mild aortic stenosis. Blood pressure 107/71 heart rate 62 afebrile maintaining oxygen saturation on room air. Laboratory data reviewed, WBC 8.1, hemoglobin 12.9, platelets 373, sodium 138, potassium 4.3, creatinine 0.87. Currently maintained on atorvastatin 80 mg daily, hyzaar 50/12.5 mg daily. GENERAL: Well-appearing, well-nourished and in no acute distress. NECK: Supple without JVD or thyromegaly. LUNGS: Breath sounds clear to auscultation bilaterally. Respiration equal and unlabored. No wheezes, rales or rhonchi. HEART: Regular rate and rhythm with systolic ejection murmur at the base, no rubs or gallops. S1 and S2 heard. EXTREMITIES: Normal range of motion, no edema. No clubbing or cyanosis. Peripheral pulses intact. ASSESSMENT Chest pain. An acute coronary event has been ruled out. Hypertension Dyslipidemia Aortic stenosis PLAN Continue with stress test as previously ordered. If abnormal coronary angiography will be considered, if normal she may be discharged home. Follow up with Dr. Werner upon discharge. Nurse Practitioner note has been reviewed, I agree with a documented findings and plan of care. Patient was seen and examined. Objective - Vital Signs Vital signs: Vital Signs Temp 98.6 F 11/05/18 07:01 Pulse 62 11/05/18 07:01 Resp 18 11/05/18 07:01 BP 107/71 11/05/18 07:01 Pulse Ox 98 11/05/18 07:01 Intake & Output 11/04/18 11/05/18 11/05/18 18:59 06:59 18:59 Other: Voiding Method Toilet Toilet # Voids 1 - Labs CBC & Chem 7: 11/05/18 05:29 11/05/18 05:29 Labs: Abnormal Lab Results - Last 24 Hours (Table) 11/05/18 Range/Units 05:29 Glucose 122 H (74-99) mg/dL
[2018-11-05] MEDS: LOSARTAN-HCTZ 50-12.5 MG 1 EACH TAB PO SCH (11:40)
--- NOTE | 2018-11-05 11:54 | NM ---
EXAMINATION TYPE: NM stress cardiolite complete DATE OF EXAM: 11/05/2018 COMPARISON: NONE HISTORY: Chest pain TECHNIQUE: After the intravenous administration of 10.0 mCi Tc 99m Sestamibi - Rest images obtained 45 minutes post injection. The patient exercised using a ERICKA protocol and 1 minute prior to peak exercise was injected with 25.5 mCi Tc 99m Sestamibi - Stress images obtained 15 minutes post injecti on. FINDINGS: Targeted heart rate was achieved during performance of the study. Review of stress and rest SPECT curt ges demonstrates no distinct perfusion abnormality. Gated analysis shows normal wall motion with an estimated left ventricular ejection fraction of 95 %. IMPRESSION: No scintigraphic evidence for reversible ischemia
--- NOTE | 2018-11-05 13:41 | EST ---
EXERCISE STRESS DATE OF SERVICE: 11/05/2018 AGE: 48 SEX: Female HT: 4'11" WT: 115 PROTOCOL: Cardiolite Davey STAGE: II DURATION OF EXERCISE: 6 minutes HEART RATE REST: 92 BLOOD PRESSURE REST: 154/99 MAXIMUM HEART RATE ACHIEVED: 162 MAXIMUM BLOOD PRESSURE: 211/60 85% MPHR: 148 100% MPHR: 174 METS: 7.3 INDICATIONS: Chest pain. CLINICAL INFORMATION: STRESS DATA: Pretesting physical examination showed a heart rate of 92, pressure is 154/99 mmHg. Baseline EKG showed sinus mechanism. The patient exercised on the treadmill according to Davey protocol for a total of 6 minutes and achieved 7.3 METs. Max heart rate was 162, which is about 93% of maximum predicted heart rate. Maximum blood pressure was 211/60 mmHg. Clinically the patient did not have any symptoms of chest pain or discomfort and the EKG did not show any significant ST or T-wave abnormalities concerning for ischemia. CONCLUSION: 1. Average exercise tolerance. 2. Normal EKG in response to exercise. 3. Please follow up on the Cardiolite portion on separate report from the radiology department. MMODL / IJN: [id number] /
[2018-11-05 15:25] VITALS: BP 118/76; PULSE 74; TEMP 98.2
--- NOTE | 2018-11-05 22:08 | P.DS ---
Providers Date of admission: 11/03/18 12:42 Expected date of discharge: 11/05/18 Attending physician: Ruth Larson Consults: 11/03/18 12:40 Consult Physician Urgent Consulting Provider: Dawood Au Consult Reason/Comments: cp Do you want consulting provider notified?: Yes Primary care physician: [facility] Course: Discharge diagnosis Chest pain. Ruled out ACS. Likely GI related. Possible Gastritis/ esophagitis. Hypertension Dyslipidemia Aortic stenosis Alcohol abuse There is a very pleasant 48-year-old female past medical history significant for hypertension and hyperlipidemia comes in for chest pain. Patient says that she's been having chest pain on and off for the last few weeks. The chest pain would be associated with shortness of breath lightheadedness and dizziness. She said that the chest pain was more heaviness in the chest neck summary was sitting on her and she rated about 7 x 10 intensity. There was no radiation of the pain. He said that whenever she exerts herself she has this symptoms along with shortness of breath. She otherwise does not complain of any abdominal pain , no nausea and vomiting, or diarrhea constipation, no headache, loss of vision or blurry vision, no tingling numbness on in the extremities, no itch or rash. ER course-patient's vitals were stable. General lab work 1 and showed abuse 11.1 hemoglobin 13.4 sodium 140 potassium 4.2 B1 12 creatinine 0.80 troponin level less than 0.012. Chest x-ray shows no acute process, EKG shows normal sinus rhythm. LDL 143. D-dimer is not elevated. Patient was continued on telemetry monitoring. Serial EKG and troponins negative. Patient was seen by cardiology and recommended stress test today. Patient underwent Cardiolite stress test which came out negative. Patient's symptoms seems to be related to GI system are present. Patient does take Motrin every other day at home and also does drink 2-3 days per week. Patient was counseled extensively. Recommended to follow with primary care physician for further evaluation.. Currently patient is chest pain-free. PHYSICAL EXAMINATION: Patient is lying in the bed comfortably, no acute distress, awake alert and oriented.. HEENT: Normocephalic. Neck is supple. Pupils reactive. Nostrils clear. Oral cavity is moist. Ears reveal no drainage. Neck reveals no JVD, carotid bruits, or thyromegaly. CHEST EXAMINATION: Trachea is central. Symmetrical expansion. Lung colby clear to auscultation and percussion. CARDIAC: Normal S1, S2 with no gallops. No murmurs ABDOMEN: Soft. Bowel sounds normal. No organomegaly. No abdominal bruits. Extremities: reveal no edema. No clubbing or cyanosis Neurologically awake, alert, oriented x3 with well-coordinated movements. No focal deficits noted Skin: No rash or skin lesions. Psychiatric: Coperative. Nonsuicidal Musculoskeletal: No joint swelling or deformity. Normal range of motion. Vital Signs 11/05/18 15:24 Temperature 98.2 F Pulse Rate [ 74 Pulse Oximetery ] Respiratory 18 Rate Blood Pressure 118/76 [Left Arm] O2 Sat by Pulse 96 Oximetry Patient Condition at Discharge: Fair Plan - Discharge Summary Discharge Rx Participant: No New Discharge Prescriptions: New Atorvastatin [Lipitor] 80 mg PO HS #30 tab Continue Losartan-Hctz 50-12.5 mg [Hyzaar 50-12.5] 1 tab PO DAILY Levothyroxine Sodium [Synthroid] 88 mcg PO DAILY Fluticasone Nasal [place] [Flonase Nasal [place]] 1 spray EA NOSTRIL DAILY PRN PRN Reason: Allergy Symptoms Cyanocobalamin (Vitamin B-12) [Vitamin B-12] 1,000 mcg PO DAILY Changed Ibuprofen [Motrin] 400 - 600 mg PO Q6HR PRN #0 PRN Reason: Pain Discharge Medication List Losartan-Hctz 50-12.5 mg [Hyzaar 50-12.5] 1 tab PO DAILY 10/06/17 [History] Cyanocobalamin (Vitamin B-12) [Vitamin B-12] 1,000 mcg PO DAILY 11/03/18 [ History] Fluticasone Nasal [place] [Flonase Nasal [place]] 1 spray EA NOSTRIL DAILY PRN 11/03 [History] Levothyroxine Sodium [Synthroid] 88 mcg PO DAILY 11/03/18 [History] Atorvastatin [Lipitor] 80 mg PO HS #30 tab 11/05/18 [Rx] Ibuprofen [Motrin] 400 - 600 mg PO Q6HR PRN #0 11/05/18 [Rx] Follow up Appointment(s)/Referral(s): Fabian Barraza III, MD [Primary Care Provider] - 3 Days Willie Werner MD [STAFF PHYSICIAN] - 1 Week (Office will call with appointment time.) Ambulatory/Diagnostic Orders: Complete Blood Count w/diff [LAB.AMB] Time Frame: 3 Days, Location: None Selected Patient Instructions/Handouts: Chest Pain (DC) Activity/Diet/Wound Care/Special Instructions: Pending Cardiology clearance adn final dc rec. DIet: low cholesterol Activity: Limited till F/U Discharge Disposition: HOME SELF-CARE
== END 2018-11-05 16:00 | disposition home or self-care (01) ==
LOC: EC 10:59 → 1SOBS 12:42
PROVIDERS: ADMIT Hospitalist; ATTEND Hospitalist
DX: R07.89 Other chest pain (principal); R06.02 Shortness of breath; R42 Dizziness and giddiness; E03.9 Hypothyroidism, unspecified; E78.5 Hyperlipidemia, unspecified; F10.10 Alcohol abuse, uncomplicated; I10 Essential (primary) hypertension; I35.0 Nonrheumatic aortic (valve) stenosis; Z79.890 Hormone replacement therapy; Z79.899 Other long term (current) drug therapy; Z98.51 Tubal ligation status; Z88.8 Allergy status to other drugs, medicaments and biological substances; Z82.49 Family history of ischemic heart disease and other diseases of the circulatory system
CPT/HCPCS: 99285; 36415; 93005; 93017; 85379; 80061; 80053; 80048; 82550; 82553; 83735; 84484; 85025; 85027; 85610; 85730; 71046; 78452; G0378 ×3; A9500

== ENCOUNTER → 2018-11-09 | Outpatient (CLI) | payer BC ==
--- NOTE | 2018-11-12 13:58 | MM ---
Reason for exam: screening (asymptomatic). Last mammogram was performed 1 year ago. Physical Findings: A clinical breast exam by your physician is recommended on an annual basis and results should be correlated with mammographic findings. MG 3D Screening Mammo W/Cad Bilateral CC and MLO view(s) were taken. Prior study comparison: November 06, 2017, bilateral MG screening mammo w CAD. October 31, 2016, bilateral MG 3d screening mammo w/cad. The breast tissue is heterogeneously dense. This may lower the sensitivity of mammography. No significant changes when compared with prior studies. ASSESSMENT: Benign, BI-RAD 2 RECOMMENDATION: Routine screening mammogram of both breasts in 1 year.
== END | disposition home or self-care (01) ==
LOC: RADMAMWWP 16:55
PROVIDERS: ATTEND Family Medicine
DX: Z12.31 Encounter for screening mammogram for malignant neoplasm of breast (principal)
CPT/HCPCS: 77063; 77067

== ENCOUNTER → 2019-06-26 | Outpatient (CLI) | payer BC ==
--- NOTE | 2019-06-26 15:21 | US ---
EXAMINATION TYPE: US pelvic complete DATE OF EXAM: 06/26/2019 COMPARISON: US 04/06/2018 CLINICAL HISTORY: R10.2 Pelvic pain. Heavy painful irregular cycles, history of ovarian cysts, gravid a 4, para 3, miscarriage 1, history tubal ligation TECHNIQUE: Transabdominal sonographic images of the pelvis were acquired. Date of LMP: 06/21/2019 EXAM MEASUREMENTS: Uterus: 10.5 x 5.3 x 5.1 cm Endometrial Stripe: 0.4 cm Right Ovary: 2.3 x 1.6 x 1.4 cm Left Ovary: 2.9 x 1.1 x 1.8 cm 1. Uterus: anteverted, heterogeneous with 2.0 x 1.7 x 1.9cm hypoechoic area anterior myometrium, pro bable leiomyoma. 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 2. Endometrium: wnl 3. Right Ovary: wnl 4. Left Ovary: wnl 5. Bilateral Adnexa: wnl 6. Posterior cul-de-sac: wnl IMPRESSION: Heterogenous uterine myometrium with a 2.0 cm intramural lesion, likely a uterine leiomyo ma. No endometrial thickening in this patient with irregular menses. The additional previously seen s econd probable leiomyoma on the exam of 04/06/2018 is not visualized on today's exam.
== END | disposition home or self-care (01) ==
LOC: RADUSWWP 14:31
PROVIDERS: ATTEND Obstetrics & Gynecology
DX: R10.2 Pelvic and perineal pain (principal)
CPT/HCPCS: 76856

== ENCOUNTER → 2019-11-11 | Outpatient (CLI) | payer BC ==
--- NOTE | 2019-11-12 11:26 | MM ---
Reason for exam: screening (asymptomatic). Last mammogram was performed 1 year ago. Physical Findings: A clinical breast exam by your physician is recommended on an annual basis and results should be correlated with mammographic findings. MG 3D Screening Mammo W/Cad Bilateral CC and MLO view(s) were taken. Prior study comparison: November 09, 2018, bilateral MG 3d screening mammo w/cad. November 06, 2017, bilateral MG screening mammo w CAD. The breast tissue is heterogeneously dense. This may lower the sensitivity of mammography. No significant changes when compared with prior studies. ASSESSMENT: Negative, BI-RAD 1 RECOMMENDATION: Routine screening mammogram of both breasts in 1 year.
== END | disposition home or self-care (01) ==
LOC: RADMAMWWP 15:12
PROVIDERS: ATTEND Obstetrics & Gynecology
DX: Z12.31 Encounter for screening mammogram for malignant neoplasm of breast (principal)
CPT/HCPCS: 77063; 77067

== ENCOUNTER → 2020-09-15 | Outpatient (CLI) | payer BC ==
[2020-09-15 15:31] LABS: T4, Free (Free Thyroxine) 1.24 ng/dL (0.78-2.19)
--- NOTE | 2020-09-15 15:36 | US ---
EXAMINATION TYPE: US pelvic complete DATE OF EXAM: 09/15/2020 COMPARISON: NONE CLINICAL HISTORY: R10.2 pelvic pain, N92.0. pain TECHNIQUE: Transabdominal (TA). Transabdominal sonographic images of the pelvis were acquired. EXAM MEASUREMENTS: Uterus: 10.3 x 5.0 x 4.5 cm Endometrial Stripe: .5 cm Right Ovary: 2.8 x 2.0 x 1.7 cm Left Ovary: 1.5 x .8 x 1.2 cm 1. Uterus: Anteverted Fibroid seen 2.2 x 2.4 x 2.5 cm. 2. Endometrium: wnl 3. Right Ovary: Cyctic area appears simple measures 1.8 x 2.3 x 1.5 cm. 4. Left Ovary: wnl 5. Bilateral Adnexa: wnl 6. Posterior cul-de-sac: wnl Urinary bladder may contain some minimal debris but is otherwise unremarkable. IMPRESSION: 1. Uterine fibroid 2. Right ovarian cyst
[2020-09-16 11:53] LABS: Follicle Stimulating Hormone 50.8 mIU/mL; Luteinizing Hormone 28.2 mIU/mL; Prolactin 8.1 ng/mL (2.8-29.2)
== END | disposition home or self-care (01) ==
LOC: RADUSWWP 14:30
PROVIDERS: ATTEND Obstetrics & Gynecology
DX: D25.9 Leiomyoma of uterus, unspecified (principal); N83.201 Unspecified ovarian cyst, right side; Z13.29 Encounter for screening for other suspected endocrine disorder
CPT/HCPCS: 36415; 76856; 83001; 83002; 84146; 84439; 84443

== ENCOUNTER → 2020-11-27 | Outpatient (CLI) | payer BC ==
--- NOTE | 2020-11-30 11:38 | MM ---
Reason for exam: screening (asymptomatic). Last mammogram was performed 1 year and 1 month ago. History: Family history of breast cancer in maternal aunt. Physical Findings: A clinical breast exam by your physician is recommended on an annual basis and results should be correlated with mammographic findings. MG 3D Screening Mammo W/Cad Bilateral CC and MLO view(s) were taken. Prior study comparison: November 11, 2019, bilateral MG 3d screening mammo w/cad. November 09, 2018, bilateral MG 3d screening mammo w/cad. The breast tissue is heterogeneously dense. This may lower the sensitivity of mammography. No significant changes when compared with prior studies. ASSESSMENT: Benign, BI-RAD 2 RECOMMENDATION: Routine screening mammogram of both breasts in 1 year.
== END | disposition home or self-care (01) ==
LOC: RADMAMWWP 09:58
PROVIDERS: ATTEND Obstetrics & Gynecology
DX: Z12.31 Encounter for screening mammogram for malignant neoplasm of breast (principal)
CPT/HCPCS: 77063; 77067

== ENCOUNTER → 2021-05-03 | Outpatient (CLI) | payer BC ==
[2021-05-03 21:26] LABS: African American GFR (CKD) 61.9 (60.0-200.0); Albumin 4.5 g/dL (3.80-4.90); Albumin/Globulin Ratio 1.8 (1.60-3.17); BUN/Creat Ratio 11.67 Ratio (12.00-20.00); Calcium 9.5 mg/dL (8.7-10.3); Globulin 2.5 g/dL (1.6-3.3); Non-African American GFR(CKD) 53.4 (60.0-200.0); Potassium 4.4 mmol/L (3.5-5.5); Total Bilirubin 0.4 mg/dL (0.2-1.2)
== END | disposition home or self-care (01) ==
LOC: LABWHC1 10:52
PROVIDERS: ATTEND Internal Medicine Endocrinology, Diabetes & Metabolism
DX: E21.0 Primary hyperparathyroidism (principal); E03.8 Other specified hypothyroidism
CPT/HCPCS: 36415; 80053; 82306; 83970

== ENCOUNTER → 2021-06-08 | Outpatient (CLI) | payer BC ==
--- NOTE | 2021-06-09 09:57 | US ---
EXAMINATION TYPE: US thyroid st tissue head/neck DATE OF EXAM: 06/08/2021 COMPARISON: NONE CLINICAL HISTORY: 50-year-old female E21.0 Primary hyperparathyroidism. Takes levothyroxine, tirednes s, high calcium level TECHNIQUE: Multiple sonographic images of the thyroid gland are obtained. FINDINGS: GLAND SIZE: Right Lobe: 4.7 x 1.9 x 1.8 cm Overall Parenchyma: heterogenous Left Lobe: 4.0 x 1.2 x 1.4 cm Overall Parenchyma: heterogeneous Isthmus Thickness: 0.4 cm NODULES RIGHT: # of nodules measured on right: 2 1. 0.4 X 0.3 x 0.4 cm, lower pole , hypoechoic TR 4 nodule, which is as wide as it is tall ill-defi uvaldo margins, without echogenic foci. 2. 0.4 X 0.5 x 0.3 cm, lower medial pole, hypoechoic TR 4 nodule, which is wider than tall, with s mooth margins, without echogenic foci. 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 Inferior to left thyroid at Parathyroid Level, 2 oval hypoechoic structures are seen with #1) = 1.2 x 0.7 x 0.3cm and #2) = 0.8 x 0.5 x 0.4cm. IMPRESSION: 1. A couple small TR 4 solid nodules in the right lobe measuring up to 5 mm. 2. Two nodules posteriorly along the inferior aspect of each thyroid lobe measuring up to 5 mm on the right and 1.2 cm on the left. Unable to exclude parathyroid adenomas. Consider a nuclear medicine pa rathyroid scan depending on clinical suspicion.
== END | disposition home or self-care (01) ==
LOC: RADUSWWP 15:43
PROVIDERS: ATTEND Internal Medicine Endocrinology, Diabetes & Metabolism
DX: E04.1 Nontoxic single thyroid nodule (principal); E21.0 Primary hyperparathyroidism
CPT/HCPCS: 76536

== ENCOUNTER → 2021-06-24 | Outpatient (CLI) | payer BC ==
--- NOTE | 2021-06-24 15:23 | BD ---
EXAMINATION TYPE: Axial Bone Density DATE OF EXAM: 06/24/2021 COMPARISON: NONE CLINICAL HISTORY: Primary hyperparathyroidism Height: 59 Weight: 120.9 FRAX RISK QUESTIONS: Alcohol (3 or more units per day): no Family History (Parent hip fracture): no Glucocorticoids (More than 3mos): no (Ex: prednisone, prednisolone, methylprednisolone, dexamethasone, and hydrocortisone). History of Fracture in Adulthood: no Secondary Osteoporosis: 1. Type 1 Diabetes: no 2. Hyperthyroidism: no 3. Menopause before 45: no 4. Malnutrition: no 5. Chronic liver disease: no Rheumatoid Arthritis: no Current Tobacco Use: no RISK FACTORS HISTORY OF: Surgery to Spine/Hip(right/left)/Wrist (right/left): no Active: yes Postmenopausal woman: last cycle was 6 months ago Lost more than 2 inches in height since high school: no Hyperparathyroidism: yes MEDICATIONS: Thyroid Medications: levothyroxine How Long: since 2012 Additional History: EXAM MEASUREMENTS: Bone mineral densitometry was performed using the [employer]ic[employer] System. Bone mineral density as measured about the Lumbar spine is: ----- L1-L4(G/cm2): 1.253 T Score Values are as follows: ----- L2: 0.5 ----- L3: 1.2 ----- L4: 0.4 ----- L1-L4: 0.6 Bone mineral density : baseline Bone mineral density about the R hip (g/cm2): 0.864 Bone mineral density about the L hip (g/cm2): 0.891 T Score values are as follows: -----R Neck: -1.3 -----L Neck: -1.1 -----R Total: -0.8 -----L Total: -0.8 Bone mineral density : baseline IMPRESSION: Osteopenia (T Score between -2.5 and -1). There is slightly increased risk of fracture and the patient may be considered for treatment. Re-Screen 2-5 years. NOTE: T-SCORE=SD OF THE YOUNG ADULT MEAN.
== END | disposition home or self-care (01) ==
LOC: RADBDWWP 07:55
PROVIDERS: ATTEND Internal Medicine Endocrinology, Diabetes & Metabolism
DX: E21.0 Primary hyperparathyroidism (principal); M85.80 Other specified disorders of bone density and structure, unspecified site
CPT/HCPCS: 77080

== ENCOUNTER → 2021-07-09 | Outpatient (CLI) | payer BC ==
--- NOTE | 2021-07-09 17:59 | NM ---
EXAMINATION TYPE: NM parathyroid w/spect DATE OF EXAM: 07/09/2021 COMPARISON: NONE HISTORY: Parathyroid adenoma TECHNIQUE: Following administration of 22.6 mCi Tc99m Sestamibi. Anterior projection images of the neck and ches t were obtained 10 minutes and 3 hours post injection. SPECT images of the neck and chest were obtai uvaldo and reconstructed in three axes. FINDINGS: Thyroid tracer washout: Delayed images demonstrate near-complete tracer washout from the thyroid. Parathyroid uptake: None. The two-hour delayed images do not demonstrate any focal abnormal persisten t uptake in the region of the parathyroid glands to suggest parathyroid adenoma. Normal uptake: There is physiological tracer uptake in the myocardium, liver, salivary glands, and th yroid gland. IMPRESSION: Normal parathyroid imaging study. No evidence for mediastinal uptake to suggest mediastinal parathyro id adenoma
== END | disposition home or self-care (01) ==
LOC: RADNMMAIN 11:12
PROVIDERS: ATTEND Internal Medicine Endocrinology, Diabetes & Metabolism
DX: E21.0 Primary hyperparathyroidism (principal)
CPT/HCPCS: 78071; A9500

== ENCOUNTER → 2022-01-10 | Outpatient (CLI) | payer OTHER ==
[2022-01-11 03:22] LABS: African American GFR (CKD) 68.3 (60.0-200.0); Albumin 4.6 g/dL (3.8-4.9); Albumin/Globulin Ratio 1.73 (1.60-3.17); Anion Gap 12.9 mmol/L (10.00-18.00); BUN/Creat Ratio 7.63 Ratio (12.00-20.00); Blood Urea Nitrogen 8.4 mg/dL (9.0-27.0); Calcium 9.9 mg/dL (8.7-10.3); Carbon Dioxide 22.6 mmol/L (20.0-27.5); Globulin 2.6 g/dL (1.6-3.3); Non-African American GFR(CKD) 58.9 (60.0-200.0); Potassium 4.3 mmol/L (3.5-5.5); Total Bilirubin 0.2 mg/dL (0.30-1.20); Total Protein 7.2 g/dL (6.2-8.2)
== END | disposition home or self-care (01) ==
LOC: LABWHC1 10:34
PROVIDERS: ATTEND Internal Medicine Endocrinology, Diabetes & Metabolism
DX: E21.0 Primary hyperparathyroidism (principal)
CPT/HCPCS: 36415; 80053; 82306; 83970

== ENCOUNTER → 2022-04-04 | Outpatient (CLI) | payer OTHER ==
[2022-04-04 23:02] LABS: Basophils # (A) 0.03 X 10*3/uL (0.00-0.10); Basophils % (A) 0.4 %; Eosinophils # (A) 0.14 X 10*3/uL (0.04-0.35); Eosinophils % (A) 1.8 %; HCT 40.6 % (37.2-46.3); HGB 12.8 g/dL (12.0-15.0); Immature Grans, Automated 0.4 %; Lymphocytes # (A) 2.57 X 10*3/uL (0.90-5.00); Lymphocytes % (A) 32.8 %; MCH 29.9 pg (27.0-32.0); MCHC 31.5 g/dL (32.0-37.0); MCV 94.9 fL (80.0-97.0); Mean Platelet Volume 10.3 fL (9.5-12.2); Monocytes # (A) 0.51 X 10*3/uL (0.20-1.00); Monocytes % (A) 6.5 %; NRBC Per 100 WBC 0 /100 WBCS (0.0-0.0); Neutrophils # (A) 4.55 X 10*3/uL (1.80-7.70); Neutrophils % (A) 58.1 %; Platelet Count 376 X 10*3/uL (140-440); RBC 4.28 X 10*6/uL (4.10-5.20); RDW 12.9 % (11.5-14.5); WBC 7.83 X 10*3/uL (4.50-10.00)
== END | disposition home or self-care (01) ==
LOC: LABPAT 15:49
PROVIDERS: ATTEND Obstetrics & Gynecology
DX: Z01.812 Encounter for preprocedural laboratory examination (principal)
CPT/HCPCS: 85025; 93005

== ENCOUNTER 2022-04-05 17:27 | Inpatient (IN) | payer OTHER ==
[2022-04-05 18:02] LABS: Glucose,Whole Blood 126 mg/dL (70-110)
[2022-04-05] MEDS ORDERED: diphenhydrAMINE 50 MG/ML 1 ML VIAL IVP STA (18:18)
[2022-04-05] MEDS ORDERED: METOCLOPRAMIDE 5 MG/ML 2 ML VIAL IVP STA (18:18)
--- NOTE | 2022-04-05 18:26 | ED ---
Neuro HPI - General Chief Complaint: Neuro Symptoms/Deficit Stated Complaint: RT side weakness, possible stroke Time Seen by Provider: 04/05/22 17:35 Source: patient Mode of arrival: wheelchair Limitations: no limitations - History of Present Illness Is the patient presenting with stroke symptoms?: Yes Last Known Well Date: 04/03/22 Initial Comments: 51-year-old female presents to the emergency room with strokelike symptoms. Reports that on Monday she began dragging her right foot due to weakness. Monday she ended up having 2 syncopal episodes where she fell and hit her head on her vanity in her bathroom. She was unsure how long she was on the floor for. Her symptoms progressed to right-sided facial droop and right upper extremity weakness. Denies history of stroke. No visual changes or headache. Denies neck pain. No fevers. Denies chest pain. No other alleviating, precipitating or modifying factors - Related Data Home Medications: Home Medications Medication Instructions Recorded Confirmed Levothyroxine Sodium [Synthroid] 88 mcg PO AC-[id number] 11/03/18 04/05/22 Atorvastatin [Lipitor] 40 mg PO DAILY 04/05/22 04/05/22 Metoprolol Succinate (ER) [Toprol 25 mg PO DAILY 04/05/22 04/05/22 XL] Previous Rx's Medication Instructions Recorded Amoxic-Pot Clav 875-125Mg 1 tab PO BID 7 Days #14 tab 04/07/22 [Augmentin 875-125] Aspirin 325 mg PO DAILY #30 tab 04/07/22 Clopidogrel [Plavix] 75 mg PO DAILY #21 tab 04/07/22 Losartan [Cozaar] 50 mg PO DAILY #30 tab 04/07/22 Allergies/Adverse Reactions: Allergies Allergy/AdvReac Type Severity Reaction Status Date / Time lisinopril AdvReac Cough Verified 04/05/22 19:36 Review of Systems ROS Statement: Those systems with pertinent positive or pertinent negative responses have been documented in the HPI. ROS Other: All systems not noted in ROS Statement are negative. General Exam Limitations: no limitations General appearance: alert, in no apparent distress Head exam: Present: atraumatic, normocephalic, other (droop right lower face) Eye exam: Present: normal appearance, PERRL, EOMI. Absent: scleral icterus, conjunctival injection, periorbital swelling ENT exam: Present: normal exam, mucous membranes moist Neck exam: Present: normal inspection. Absent: tenderness, meningismus, lymphadenopathy Respiratory exam: Present: normal lung sounds bilaterally. Absent: respiratory distress, wheezes, rales, rhonchi, stridor Cardiovascular Exam: Present: regular rate, normal rhythm, normal heart sounds. Absent: systolic murmur, diastolic murmur, rubs, gallop, clicks GI/Abdominal exam: Present: soft, normal bowel sounds. Absent: distended, tenderness, guarding, rebound, rigid Extremities exam: Present: normal capillary refill, other (3/5 strength right upper extremity. 4/5 strength right lower extremity). Absent: tenderness, pedal edema, joint swelling, calf tenderness Back exam: Present: normal inspection Neurological exam: Present: alert, oriented X3, CN II-XII intact Psychiatric exam: Present: normal affect, normal mood Skin exam: Present: warm, dry, intact, normal color. Absent: rash Stroke MDM - Lab Data Result diagrams: 04/07/22 08:05 04/07/22 08:05 Lab Results 04/05/22 04/05/22 04/05/22 Range/Units 17:54 18:27 18:27 WBC (3.8-10.6) k/uL RBC (3.80-5.40) m/uL Hgb (11.4-16.0) gm/dL Hct (34.0-46.0) % MCV (80.0-100.0) fL MCH (25.0-35.0) pg MCHC (31.0-37.0) g/dL RDW (11.5-15.5) % Plt Count (150-450) k/uL MPV Neutrophils % % Lymphocytes % % Monocytes % % Eosinophils % % Basophils % % Neutrophils # (1.3-7.7) k/uL Lymphocytes # (1.0-4.8) k/uL Monocytes # (0-1.0) k/uL Eosinophils # (0-0.7) k/uL Basophils # (0-0.2) k/uL PT 10.9 (9.0-12.0) sec INR 1.0 (<1.2) APTT 27.0 (22.0-30.0) sec Sodium 138 (137-145) mmol/L Potassium 4.8 (3.5-5.1) mmol/L Chloride 102 (98-107) mmol/L Carbon Dioxide 26 (22-30) mmol/L Anion Gap 10 mmol/L BUN 14 (7-17) mg/dL Creatinine 1.15 H (0.52-1.04) mg/dL Est GFR (CKD-EPI)AfAm 65 (>60 ml/min/1.73 sqM) Est GFR (CKD-EPI)NonAf 56 (>60 ml/min/1.73 sqM) Glucose 108 H (74-99) mg/dL POC Glucose (mg/dL) 126 H (70-110) mg/dL POC Glu Process Machine Operator ID Andrew Headleyn Calcium 10.1 (8.4-10.2) mg/dL Total Bilirubin 0.6 (0.2-1.3) mg/dL AST 33 (14-36) U/L ALT 22 (4-34) U/L Alkaline Phosphatase 31 L (38-126) U/L Troponin I (0.000-0.034) ng/mL Total Protein 7.8 (6.3-8.2) g/dL Albumin 4.7 (3.5-5.0) g/dL Urine Color Urine Appearance (Clear) Urine pH (5.0-8.0) Ur Specific [place] (1.001-1.035) Urine Protein (Negative) Urine Glucose (UA) (Negative) Urine Ketones (Negative) Urine Blood (Negative) Urine Nitrite (Negative) Urine Bilirubin (Negative) Urine Urobilinogen (<2.0) mg/dL Ur Leukocyte Esterase (Negative) 04/05/22 04/05/22 04/05/22 Range/Units 18:27 18:27 18:28 WBC 11.3 H (3.8-10.6) k/uL RBC 4.22 (3.80-5.40) m/uL Hgb 12.7 (11.4-16.0) gm/dL Hct 38.4 (34.0-46.0) % MCV 91.0 (80.0-100.0) fL MCH 30.1 (25.0-35.0) pg MCHC 33.1 (31.0-37.0) g/dL RDW 12.3 (11.5-15.5) % Plt Count 384 (150-450) k/uL MPV 7.5 Neutrophils % 71 % Lymphocytes % 21 % Monocytes % 5 % Eosinophils % 2 % Basophils % 0 % Neutrophils # 8.0 H (1.3-7.7) k/uL Lymphocytes # 2.4 (1.0-4.8) k/uL Monocytes # 0.6 (0-1.0) k/uL Eosinophils # 0.2 (0-0.7) k/uL Basophils # 0.0 (0-0.2) k/uL PT (9.0-12.0) sec INR (<1.2) APTT (22.0-30.0) sec Sodium (137-145) mmol/L Potassium (3.5-5.1) mmol/L Chloride (98-107) mmol/L Carbon Dioxide (22-30) mmol/L Anion Gap mmol/L BUN (7-17) mg/dL Creatinine (0.52-1.04) mg/dL Est GFR (CKD-EPI)AfAm (>60 ml/min/1.73 sqM) Est GFR (CKD-EPI)NonAf (>60 ml/min/1.73 sqM) Glucose (74-99) mg/dL POC Glucose (mg/dL) (70-110) mg/dL POC Glu Process Machine Operator ID Calcium (8.4-10.2) mg/dL Total Bilirubin (0.2-1.3) mg/dL AST (14-36) U/L ALT (4-34) U/L Alkaline Phosphatase (38-126) U/L Troponin I <0.012 (0.000-0.034) ng/mL Total Protein (6.3-8.2) g/dL Albumin (3.5-5.0) g/dL Urine Color Light Yellow Urine Appearance Clear (Clear) Urine pH 6.5 (5.0-8.0) Ur Specific [place] 1.015 (1.001-1.035) Urine Protein Negative (Negative) Urine Glucose (UA) Negative (Negative) Urine Ketones Negative (Negative) Urine Blood Negative (Negative) Urine Nitrite Negative (Negative) Urine Bilirubin Negative (Negative) Urine Urobilinogen <2.0 (<2.0) mg/dL Ur Leukocyte Esterase Negative (Negative) - Medical Decision Making Upon arrival patient was placed in room 12. Thorough history and physical exam was performed. Patient does have notable facial droop and weakness in her right upper and lower extremity. Her symptoms started on Monday and therefore she is out of the TPA window. I did conduct laboratory studies. She is sent over for a CT of her head as well as CT angiography. CT angiography does demonstrates a very small A1 segment of the right anterior cerebral artery which is likely developmental. No other acute findings. Patient was given an aspirin and a dose of atorvastatin. He recommended admission for continued stroke workup for which the patient did agree to. I spoke with Dr. Salcedo who agreed to admit the patient. She was taken to the floor in stable condition EKG demonstrates sinus tachycardia with a rate of 53. OR interval 116. QRS 86. QTC of 383. No acute ST segment elevations or depressions 04/05/22 18:26 Past Medical History Past Medical History: Hypertension, Thyroid Disorder Additional Past Medical History / Comment(s): aortic stenosis , Covid 09/2021, History of Any Multi-Drug Resistant Organisms: None Reported Past Surgical History: Tubal Ligation Past Anesthesia/Blood Transfusion Reactions: No Reported Reaction Past Psychological History: No Psychological Hx Reported Smoking Status: Never smoker Past Alcohol Use History: Occasional Past Drug Use History: None Reported Course Vital Signs 04/05/22 04/05/22 04/05/22 17:29 18:00 21:01 Temperature 98.3 F Pulse Rate 57 L 64 53 L Pulse Rate [ Pulse Oximetery ] Respiratory 16 18 16 Rate Blood Pressure 137/76 136/85 121/71 Blood Pressure [Right Arm] O2 Sat by Pulse 100 99 Oximetry 04/05/22 21:06 Temperature 97.9 F Pulse Rate Pulse Rate [ 49 L Pulse Oximetery ] Respiratory 19 Rate Blood Pressure Blood Pressure 130/79 [Right Arm] O2 Sat by Pulse 96 Oximetry Disposition Clinical Impression: Cerebrovascular accident (CVA), Right sided weakness Disposition: ADMITTED IP TO THIS [facility] Condition: Stable Is patient prescribed a controlled substance at d/c from ED?: No Time of Disposition: 20:33 Decision to Admit Reason: Admit from EC Decision Date: 04/05/22 Decision Time: 20:33
[2022-04-05 18:38] LABS: Basophils % (A) 0 %; Eosinophils # (A) 0.2 k/uL (0-0.7); Eosinophils % (A) 2 %; HCT 38.4 % (34.0-46.0); HGB 12.7 gm/dL (11.4-16.0); Lymphocytes # (A) 2.4 k/uL (1.0-4.8); Lymphocytes % (A) 21 %; MCH 30.1 pg (25.0-35.0); MCHC 33.1 g/dL (31.0-37.0); Mean Platelet Volume 7.5; Monocytes # (A) 0.6 k/uL (0-1.0); Monocytes % (A) 5 %; Neutrophils % (A) 71 %; Platelet Count 384 k/uL (150-450); RBC 4.22 m/uL (3.80-5.40); RDW 12.3 % (11.5-15.5); WBC 11.3 k/uL (3.8-10.6)
[2022-04-05 18:39] LABS: Appearance,Urine Clear (Clear); Bilirubin,Urine Negative (Negative); Blood,Urine Negative (Negative); Color,Urine Light Yellow; Glucose,Urine (UA) Negative (Negative); Ketones,Urine Negative (Negative); Leukocyte Esterase,Urine Negative (Negative); Nitrite,Urine Negative (Negative); PH, Urine 6.5 (5.0-8.0); Protein,Urine Negative (Negative); Specific Gravity,Urine 1.015 (1.001-1.035); Urobilinogen,Urine <2.0 mg/dL (<2.0)
[2022-04-05 18:47] LABS: Prothrombin Time 10.9 sec (9.0-12.0)
[2022-04-05 18:48] LABS: Albumin 4.7 g/dL (3.5-5.0); Calcium 10.1 mg/dL (8.4-10.2); Total Bilirubin 0.6 mg/dL (0.2-1.3); Total Protein 7.8 g/dL (6.3-8.2)
--- NOTE | 2022-04-05 18:59 | CT ---
EXAMINATION TYPE: CT brain wo con DATE OF EXAM: 04/05/2022 COMPARISON: None HISTORY: Right sided weakness and numbness. CT DLP: 1091.6 mGycm Automated exposure control for dose reduction was used. Images obtained of the brain with no contrast. Ventricles have normal size. There is no mass effect or midline shift. No sign of intracranial hemorr aguila. Calvarium is intact. There is normal aeration of the mastoid sinuses. There is extensive opacif ication right maxillary sinus. This expands into the nasopharynx. No bone destruction. There is exten lynnette into the right anterior ethmoid air cells. IMPRESSION: No acute intracranial abnormality. Severe right maxillary sinusitis with some expansion and follow-up is recommended. This could be a mu cocele.
[2022-04-05 19:05] LABS: Potassium 4.8 mmol/L (3.5-5.1)
--- NOTE | 2022-04-05 19:15 | CT ---
EXAMINATION TYPE: CT angio head neck DATE OF EXAM: 04/05/2022 COMPARISON: None HISTORY: Right sided weakness and numbness. CT DLP: 366 mGycm Automated exposure control for dose reduction was used. CONTRAST: Performed with IV Contrast, patient injected with 65ml mL of Isovue 370. Images obtained from the aortic arch to the vertex of the brain with IV contrast. There are Three-D p ostprocessed images. There is normal branching pattern of the great vessels on the aortic arch. There is bilateral arteria l flow in the subclavian arteries. There is arterial flow in the common internal and external carotid arteries bilaterally. There is arterial flow in both vertebral arteries. There is wide patency of th e carotid artery bifurcations. There is arterial flow in the vertebral basilar artery system. There i s no evidence of carotid or vertebral artery aneurysm or dissection. There is arterial flow in the anterior middle and posterior cerebral arteries bilaterally. No mass ef fect. No evidence of intracranial arterial stenosis. No evidence of aneurysm or neovascularity. There is normal enhancement of the venous sinuses. There is diminutive A1 segment of the right anterior ce rebral artery that is likely developmental. Anterior cerebral arteries appear to fill mostly through the anterior communicating artery from the left side. IMPRESSION: Negative CT angiogram of the neck. There is a very small A1 segment right anterior cerebral artery which is likely developmental. Acquir ed stenosis not entirely excluded. The distal right anterior cerebral artery appears to fill normally through the anterior communicating artery.
--- NOTE | 2022-04-05 20:25 | XR ---
EXAMINATION TYPE: XR chest 2V DATE OF EXAM: 04/05/2022 COMPARISON: 11/03/2018 HISTORY: Altered mental status. Right-sided weakness TECHNIQUE: FINDINGS: Heart and mediastinum are normal. Lungs are clear. Diaphragm is normal. Bony thorax appears normal. There are chest leads. IMPRESSION: Normal chest. No change
[2022-04-05] MEDS ORDERED: ASPIRIN 325 MG TAB PO STA (20:33)
[2022-04-05] MEDS: ATORVASTATIN 40 MG TAB PO SCH (20:56)
[2022-04-05] MEDS: SODIUM CHLORIDE 0.9% 1,000 ML IV SCH (20:58)
[2022-04-06] MEDS: LEVOTHYROXINE 88 MCG TAB PO SCH (06:19)
[2022-04-06] MEDS: SODIUM CHLORIDE 0.9% 1,000 ML IV SCH ×2 (06:19→19:12)
[2022-04-06] MEDS ORDERED: LOSARTAN-HCTZ 50-12.5 MG 1 EACH TAB PO SCH (09:00)
[2022-04-06] MEDS: ATORVASTATIN 40 MG TAB PO SCH (09:10)
[2022-04-06] MEDS: ASPIRIN 325 MG TAB PO SCH (09:11)
[2022-04-06 10:37] LABS: Chol/HDL Ratio 3.14 Ratio; LDL Cholesterol,Calculated 57.9 mg/dL (0.0-131.0)
--- NOTE | 2022-04-06 11:36 | P.CNNES ---
History of Present Illness Consult date: 04/06/22 Requesting physician: Nicol Tan Reason for Consult: right sided weakness, possible CVA History of Present Illness: This is a 51-year-old woman with history of hypertension, hypothyroidism, mild aortic stenosis who presented to the emergency department because weakness of the right side and numbness. She stated this past monday around 5pm, she had episode of headache over the right hemiphsere and it is more >10/10. It is stabbing and lasted for 1-2 in severity. She felt she was having visual disturbance. Then her headache was subsiding as the day went on. Denies any similar headaches like this bore. Then she went to the bathroom and while in bathroom standing up she lost consciousness, hit her head on the bathroom shower and had urinary and bowel incontinence. Prior to passing out she had brief palpitation of hear. Her came home and found her unresponsive and she denied being told she had any jerking of any extremities. She refused medical attention. Then she took a shower and had another syncopal episode and again refused medical attention. Then on Monday she notice right foot weakness that progressed to entire leg then progressed to arm weakness. On Monday she had numbness of the right side and noticed right facial droop. She was hesistant in seeing medical attention. She feels her symptoms are improving except some weakness over the right side. Her headache has improved. Denies history of stroke or seizures in the past. Denies being on antiplatelets, statin, anticoa gulation, control pills. Denies of tobacco use or illicit drug use. Her father had TIA in his 30's years old. Her aunt had brain cancer in 40's years old. Some other workup in our facility consisted of: Issues afebrile so far Initial white blood cells 11.3 thousand and slightly neutrophilic Initial POC glucose is 126 and creatinine is 1.15 otherwise rest of the chemistry panel is unremarkable Urinalysis is negative for urinary tract infection CT of the head is reported as no acute intracranial abnormality. Severe right maxillary sinusitis with some expansion and follow-up is recommended. This could be a mucocele. I personally reviewed the CT of the head and there is no acute or subacute ischemia there is no intraparenchymal hemorrhage. CT angiography of the head and neck is CT angiography of the neck was reported as negative. While the CT of the head is there is very small A1 segment right anterior cerebral artery likely developmental acquired stenosis is not excluded that. The distal right anterior cerebral artery appears to fill normally through the anterior communicating artery. No IV TPA since the patient is outside the window and that the risk outweighed the benefit Review of Systems Review of system: The 12 point system was reviewed and apparent positive and negative per HPI. Past Medical History Past Medical History: Hypertension, Thyroid Disorder Additional Past Medical History / Comment(s): aortic stenosis , Covid 09/2021, History of Any Multi-Drug Resistant Organisms: None Reported Past Surgical History: Tubal Ligation Past Anesthesia/Blood Transfusion Reactions: No Reported Reaction Past Psychological History: No Psychological Hx Reported Smoking Status: Never smoker Past Alcohol Use History: Occasional Past Drug Use History: None Reported Medications and Allergies Home Medications Medication Instructions Recorded Confirmed Type Losartan-Hctz 50-12.5 mg [Hyzaar 1 tab PO DAILY 10/06/17 04/05/22 History 50-12.5] Levothyroxine Sodium [Synthroid] 88 mcg PO AC-BRKFST 11/03/18 04/05/22 History Atorvastatin [Lipitor] 40 mg PO DAILY 04/05/22 04/05/22 History Ibuprofen [Motrin Ib] 200 - 400 mg PO Q8H PRN 04/05/22 04/05/22 History Metoprolol Succinate (ER) [Toprol 25 mg PO DAILY 04/05/22 04/05/22 History Xl] Allergies Allergy/AdvReac Type Severity Reaction Status Date / Time lisinopril AdvReac Cough Verified 04/05/22 19:36 Physical Examination - Vital Signs Vital Signs: Vital Signs Temp Pulse Pulse Resp BP BP Pulse Ox 04/06/22 04:00 97.6 F 55 L 19 121/70 97 04/05/22 23:44 98.2 F 51 L 18 111/66 98 04/05/22 21:06 97.9 F 49 L 19 130/79 96 04/05/22 21:01 53 L 16 121/71 99 04/05/22 18:00 64 18 136/85 04/05/22 17:29 98.3 F 57 L 16 137/76 100 Intake and Output 04/05/22 04/06/22 04/06/22 22:59 06:59 14:59 Intake Total 118 Balance 118 Intake: Oral 118 Other: Voiding Method Toilet # Voids 0 1 Weight 54.431 kg GENERAL: The patient is lying in bed and is not in acute distress. CHEST: The heart rate is regular rate rhythm. No murmurs to auscultation. LUNG: Clear to auscultation bilaterally no wheezing noted throughout. Not labored breathing. ABDOMEN/GI: Bowel sounds present in all 4 quadrants. No tenderness to palpation throughout. NEUROLOGICAL: Higher mental function: The patient is awake, alert, oriented to self, place and time. Patient is following commands. No aphasia and no neglect. Cranial nerves: The pupils are round, equal and reactive to light and accommodation. Visual colby are full to confrontation throughout. Extraocular movement is intact no nystagmus is noted. Facial sensation is normal to touch throughout. The facial strength is normal throughout. Hearing is normal bilaterally to hand rub. Tongue is midline and moved huni-cu-dimw without any difficulty. No dysarthria is noted. Shoulder shrug is normal bilaterally. Motor: Gait slightly drifting the right side. The strength is right sided is 4 and has pronator dfrift on the right. Otherwise 5 over 5 on left. Normal tone and bulk. Cerebellum: Normal finger to nose bilaterally. Sensation: Sensation is normal to touch throughout. Reflexes (right/left): 3+ over bilateral patellar and right brachioradialis. Otherwise 2+ throughout. Plantars are downgoing bilaterally. Results - Laboratory Findings CBC and BMP: 04/05/22 18:28 04/05/22 18:27 Abnormal Lab Findings: Abnormal Labs 04/05/22 04/05/22 04/05/22 17:54 18:27 18:28 WBC 11.3 H Neutrophils # 8.0 H Creatinine 1.15 H Glucose 108 H POC Glucose (mg/dL) 126 H Alkaline Phosphatase 31 L Assessment and Plan Assessment: * Acute right-sided weakness, numbness, severe head, 2 episodes of syncopal episodes (patient has been having symptoms since this past Monday but refusing medical attention). On examination continues to have mild right sided weakness. Unsure cause. Rule out stroke. * 2 recent Syncopal episode * Hypertension * Hypothyroidism * Mild Aortic stenosis Plan: I ordered MRI of the brain and cervical spine with and without and MRV head to rule out stroke, thrombosis of venous system. Aspirin 325 once was given in the ED then the patient was started on aspirin 325 daily as well as Lipitor 40 mg daily for secondary stroke prophylaxis. I'll hold off on using dual antiplatelet for now until we get further imaging. Ordered 2-D echo with bubble study, TSH. I also ordered routine EEG is of the patient's syncopal episodes to rule out seizures. Continue your checks Placed on cardiac monitoring PT OT and PLASTIC SHAPER are consulted Cardiology is consulted by primary team We'll defer the rest of the medical management to the primary team For DVT prophylaxis for now use SCDs until we get imaging. The plan is discussed with patient and her nurse in detailed. Thank you for the consultation. Nino Prasad M.D. [facility] Time with Patient: Greater than 30
[2022-04-06] MEDS: METOPROLOL SUCCINATE (ER) 25 MG TAB.ER.24H PO SCH (11:49)
--- NOTE | 2022-04-06 12:05 | CA ---
Transthoracic Echo Report Name: Nitza Rao Age: 51 Gender: F : 1970 Exam Date: 04/06/2022 11:24 Exam Location: [facility] Ht (in): 51 Wt (lb): 120 Ordering Physician: Nino Prasad MD Attending/Referring Phys: Slat Basket Maker Helper Cara Hernandez RDCS Procedure CPT: Indications: STROKE. BUBBLE STUDY Cardiac Hx: Technical Quality: Fair Contrast 1: Agitated Saline Total Dose (mL): 2 Contrast 2: Total Dose (mL): MEASUREMENTS (Male / Female) Normal Values 2D ECHO LV Diastolic Diameter PLAX 3.4 cm 4.2 - 5.9 / 3.9 - 5.3 cm LV Systolic Diameter PLAX 1.5 cm IVS Diastolic Thickness 0.7 cm 0.6 - 1.0 / 0.6 - 0.9 cm LVPW Diastolic Thickness 1.0 cm 0.6 - 1.0 / 0.6 - 0.9 cm LV Relative Wall Thickness 0.5 RV Internal Dim ED PLAX 3.0 cm LA Volume 28.0 cm??? 18 - 58 / 22 - 52 cm??? M-MODE Aortic Root Diameter MM 2.7 cm LA Systolic Diameter MM 2.3 cm LA Ao Ratio MM 0.9 MV E Point Septal Separation 0.7 cm AV Cusp Separation MM 1.6 cm DOPPLER AV Peak Velocity 162.2 cm/s AV Peak Gradient 10.5 mmHg MV Area PHT 3.6 cm??? MR Peak Velocity 381.8 cm/s MR Peak Gradient 58.3 mmHg Mitral E Point Velocity 125.6 cm/s Mitral A Point Velocity 106.6 cm/s Mitral E to A Ratio 1.2 MV Deceleration Time 209.3 ms MV E' Velocity 10.4 cm/s Mitral E to MV E' Ratio 12.1 TR Peak Velocity 147.8 cm/s TR Peak Gradient 8.7 mmHg Right Ventricular Systolic Press 13.5 mmHg FINDINGS Left Ventricle Mildly increased posterior wall thickness. Left ventricular ejection fraction is estimated at 55-60 %. Left ventricular cavity size normal. Right Ventricle The right ventricle is normal in size and function. Bubble study done to rule out shunt but is inconclusive due to poor images. 2 injections of agitated saline from four chamber and subcoastal view. Right Atrium The right atrium is normal in size. Left Atrium The left atrium is normal in size. Mitral Valve Structurally normal mitral valve without significant stenosis or prolapse. There is trace mitral regurgitation. Aortic Valve Structurally normal aortic valve without significant sclerosis or stenosis. There is no aortic regurgitation. Tricuspid Valve Structurally normal tricuspid valve without significant stenosis. Pulmonary artery systolic pressure is normal. Trace tricuspid regurgitation. Pulmonic Valve Structurally normal pulmonic valve without significant stenosis. There is no pulmonic regurgitation. Pericardium Normal pericardium without effusion. Aorta Normal aortic root dimension. CONCLUSIONS Normal left ventricular ejection fraction 55-60% Inconclusive bubble study secondary to poor windows. Recommend RIA if clinically indicated Trace mitral regurgitation No pericardial effusion Previewed by: Dr. Ramiro Green DO (Electronically Signed) Final Date: 06 April 2022 12:04
--- NOTE | 2022-04-06 12:16 | P.CRDCN ---
History of Present Illness Consult date: 04/06/22 History of present illness: HISTORY OF PRESENT ILLNESS: This is a 51-year-old female with a past medical history significant for hypertension, hyperlipidemia, and hypothyroidism. Patient follows in the office with Dr. Au. We have been asked to see the patient in consultation for syncope. Patient examined at the bedside. Patient presented to the hospital after having a syncopal episode at home. She reports having a really bad headache and palpitations. She states she was in the bathroom when she passed out and hit her head on the counter. She reports having right sided weakness and numbness. She denies any chest pain or pressure. She denies any shortness of breath. Vital signs are stable. Patient reports she checked her blood pressure at home and it was in the 110s with a heart rate in the 50s. * EKG reveals sinus mechanism with a heart rate in the 50s. * Chest xray negative for acute process * Laboratory data: WBC 11.3. Hemoglobin 12.7. Platelet count 384. Sodium 138. Potassium 4.8. BUN 14. Creatinine 1.15. Troponin negative 1. * Current home cardiac medications include metoprolol succinate 25 mg daily, Lipitor 40 mg daily, Hyzaar 50-12.5mg daily * Echocardiogram completed revealing ejection fraction 55-60%, bubble study completed but inconclusive due to poor images, trace mitral regurgitation, trace tricuspid regurgitation REVIEW OF SYSTEMS: At the time of my exam: CONSTITUTIONAL: Denies fever or chills. HEENT: Denies blurred vision, vision changes, or eye pain. Denies hemoptysis CARDIOVASCULAR: Denies chest pain. Denies orthopnea. Denies PND. Denies palpitations RESPIRATORY: Denies shortness of breath. GASTROINTESTINAL: Denies abdominal pain. Denies nausea or vomiting. HEMATOLOGIC: Denies bleeding disorders. GENITOURINARY: Denies any blood in urine. SKIN: Denies pruitis. Denies rash. PHYSICAL EXAM: VITAL SIGNS: Reviewed. GENERAL: Well-developed in no acute distress. HEENT: Head is normocephalic. Pupils are equal, round. Sclerae anicteric. Mucous membranes of the mouth are moist. Neck supple. No JVD or thyromegaly LUNGS: Respirations even and unlabored. Lungs essentially clear to auscultation bilaterally. HEART: Regular rate and rhythm. S1 and S2 heard. Systolic murmur. ABDOMEN: Soft. Nondistended. Nontender. EXTREMITIES: Normal range of motion. No clubbing or cyanosis. Peripheral pulses intact. No lower extremity edema NEUROLOGIC: Awake and alert. Oriented x 3. ASSESSMENT: Syncope Right sided weakness, r/o CVA Hypertension Hyperlipidemia Mild aortic stenosis, per echo in 2019 PLAN: Neurology following. MRI ordered. Resume home cardiac medications Discontinue Hyzaar. Begin Losartan. Monitor blood pressure Continue telemetry monitoring Further recommendations pending patient course Nurse practitioner note has been reviewed by physician. Signing provider agrees with the documented findings, assessment, and plan of care. Past Medical History Past Medical History: Hypertension, Thyroid Disorder Additional Past Medical History / Comment(s): aortic stenosis , Covid 09/2021, History of Any Multi-Drug Resistant Organisms: None Reported Past Surgical History: Tubal Ligation Past Anesthesia/Blood Transfusion Reactions: No Reported Reaction Past Psychological History: No Psychological Hx Reported Smoking Status: Never smoker Past Alcohol Use History: Occasional Past Drug Use History: None Reported Medications and Allergies Home Medications Medication Instructions Recorded Confirmed Type Losartan-Hctz 50-12.5 mg [Hyzaar 1 tab PO DAILY 10/06/17 04/05/22 History 50-12.5] Levothyroxine Sodium [Synthroid] 88 mcg PO AC-BRKFST 11/03/18 04/05/22 History Atorvastatin [Lipitor] 40 mg PO DAILY 04/05/22 04/05/22 History Ibuprofen [Motrin Ib] 200 - 400 mg PO Q8H PRN 04/05/22 04/05/22 History Metoprolol Succinate (ER) [Toprol 25 mg PO DAILY 04/05/22 04/05/22 History Xl] Allergies Allergy/AdvReac Type Severity Reaction Status Date / Time lisinopril AdvReac Cough Verified 04/05/22 19:36 Physical Exam Vitals: Vital Signs Temp Pulse Pulse Resp BP BP Pulse Ox 04/06/22 11:47 97.8 F 58 L 17 105/64 98 04/06/22 08:00 61 17 04/06/22 07:50 97.6 F 61 17 115/67 99 04/06/22 04:00 97.6 F 55 L 19 121/70 97 04/05/22 23:44 98.2 F 51 L 18 111/66 98 04/05/22 21:06 97.9 F 49 L 19 130/79 96 04/05/22 21:01 53 L 16 121/71 99 04/05/22 18:00 64 18 136/85 04/05/22 17:29 98.3 F 57 L 16 137/76 100 Intake and Output 04/05/22 04/06/22 04/06/22 22:59 06:59 14:59 Intake Total 118 Balance 118 Intake: Oral 118 Other: Voiding Method Toilet Toilet # Voids 0 1 Weight 54.431 kg Results 04/05/22 18:28 04/05/22 18:27 Cardiac Enzymes 04/05/22 04/05/22 Range/Units 18:27 18:27 AST 33 (14-36) U/L Troponin I <0.012 (0.000-0.034) ng/mL Coagulation 04/05/22 Range/Units 18:27 PT 10.9 (9.0-12.0) sec APTT 27.0 (22.0-30.0) sec Lipids 04/06/22 Range/Units 07:28 Triglycerides 116.00 (0.00-149.00) mg/dL Cholesterol 119.00 (0.00-200.00) mg/dL HDL Cholesterol 37.90 L (40.00-60.00) mg/dL Cholesterol/HDL Ratio 3.14 Ratio CBC 04/05/22 Range/Units 18:28 WBC 11.3 H (3.8-10.6) k/uL RBC 4.22 (3.80-5.40) m/uL Hgb 12.7 (11.4-16.0) gm/dL Hct 38.4 (34.0-46.0) % Plt Count 384 (150-450) k/uL Comprehensive Metabolic Panel 04/05/22 Range/Units 18:27 Sodium 138 (137-145) mmol/L Potassium 4.8 (3.5-5.1) mmol/L Chloride 102 (98-107) mmol/L Carbon Dioxide 26 (22-30) mmol/L BUN 14 (7-17) mg/dL Creatinine 1.15 H (0.52-1.04) mg/dL Glucose 108 H (74-99) mg/dL Calcium 10.1 (8.4-10.2) mg/dL AST 33 (14-36) U/L ALT 22 (4-34) U/L Alkaline Phosphatase 31 L (38-126) U/L Total Protein 7.8 (6.3-8.2) g/dL Albumin 4.7 (3.5-5.0) g/dL Current Medications Generic Name Dose Route Start Last Admin Trade Name Jose Antonio PRN Reason Stop Dose Admin Aspirin 325 mg 04/06/22 09:00 04/06/22 09:11 Aspirin 325 Mg Tab PO 325 mg DAILY VIVIANA Administration Atorvastatin Calcium 40 mg 04/05/22 20:45 04/06/22 09:10 Atorvastatin 40 Mg Tab PO 40 mg DAILY VIVIANA Administration Heparin Sodium (Porcine) 5,000 unit 04/06/22 21:00 Heparin Sodium,Porcine/Pf 5,000 Unit/0.5 Ml Syringe SQ Q12HR VIVIANA Sodium Chloride 1,000 mls @ 100 mls/hr 04/05/22 20:45 04/06/22 06:19 Saline 0.9% IV 100 mls/hr .Q10H VIVIANA Administration Levothyroxine Sodium 88 mcg 04/06/22 07:30 04/06/22 06:19 Levothyroxine 88 Mcg Tab PO 88 mcg AC-BRKFST VIVIANA Administration Losartan Potassium 50 mg 04/07/22 09:00 Losartan 50 Mg Tab PO DAILY VIVIANA Metoprolol Succinate 25 mg 04/06/22 09:00 04/06/22 11:49 Metoprolol Succinate (Er) 25 Mg Tab.Er.24h PO Not Given DAILY VIVIANA Intake and Output 04/05/22 04/06/22 04/06/22 22:59 06:59 14:59 Intake Total 118 Balance 118 Intake: Oral 118 Other: Voiding Method Toilet Toilet # Voids 0 1 Weight 54.431 kg 04/05/22 18:28 04/05/22 18:27
[2022-04-06 13:09] LABS: T4, Free (Free Thyroxine) 1.71 ng/dL (0.78-2.19)
--- NOTE | 2022-04-06 13:21 | US ---
EXAMINATION TYPE: US venous doppler duplex LE DATE OF EXAM: 04/06/2022 12:00 PM COMPARISON: NONE CLINICAL HISTORY: covid history, pt. presenting with CVA symptoms. No redness or swelling. No hx DVT . Not on blood thinners. SIDE PERFORMED: Bilateral TECHNIQUE: The lower extremity deep venous system is examined utilizing real time linear array sonog sony with graded compression, doppler sonography and color-flow sonography. VESSELS IMAGED: Common Femoral Vein Deep Femoral Vein Greater Saphenous Vein * Femoral Vein Popliteal Vein Small Saphenous Vein * Proximal Calf Veins (* superficial vessels) Right Leg: Negative for DVT Left Leg: Negative for DVT IMPRESSION: Grayscale, color doppler, spectral doppler imaging performed of the deep veins of the lo wer extremities. There is normal flow, compressibility, vascular waveforms.
--- NOTE | 2022-04-06 18:04 | MR ---
EXAMINATION TYPE: MR brain/cspine wo/w DATE OF EXAM: 04/06/2022 COMPARISON: None HISTORY: Acute right sided weakness, evaluate for CVA. CONTRAST: Standard multiplanar, multisequence MRI departmental protocol images were obtained without contrast a nd with 5.5 mL intravenous Gadavist gadolinium contrast. Images of the brain and cervical spine obtained with and without the IV contrast. The diffusion images show no evidence of an acute infarct. Ventricles have normal size. There is no m ass effect or midline shift. No sign of intracranial hemorrhage. Corpus callosum appears normal. Sell a turcica is normal. No evidence of orbital mass. There is extensive mucosal thickening in the right side maxillary and ethmoid sinus. No evidence of any significant intracranial white matter disease. The cervical vertebra have normal alignment. Disc spaces are fairly normal. No compression fracture. There is some facet arthropathy and minimal disc bulging posteriorly at C5-6 with slight narrowing of the spinal canal. Canal measures 6 mm at C5-6 which is the narrowest point. There is a posterior dis c herniation at C6-7 towards the right side. No significant spinal stenosis at C6-7. No focal bone destruction. Contrast images show no pathologic enhancement. There is normal enhancement of the venous sinuses. No pathologic enhancement of the cervical spine. IMPRESSION: Posterior right-sided C6-7 cervical disc herniation without significant spinal stenosis. 6 mm minimal spinal stenosis at C5-6 due to facet arthropathy and minimal disc bulging. No acute intracranial abnormality. Right side axillary and ethmoid sinusitis. Mild right frontal sinu sitis. No evidence of demyelinating disease.
--- NOTE | 2022-04-06 20:02 | MR ---
EXAMINATION TYPE: MR venography head wo con DATE OF EXAM: 04/06/2022 COMPARISON: None HISTORY: Acute right sided weakness, evaluate for CVA. MR venographic images of the brain were obtained with no contrast. There is normal venous signal pattern demonstrated in the sagittal sinus and the straight sinus. Ther e is normal signal in the sigmoid sinus and in the cerebral vein. No evidence of a filling defect. IMPRESSION: Normal exam. No evidence of sinus vein thrombosis.
[2022-04-06] MEDS: HEPARIN SODIUM,PORCINE/PF 5,000 UNIT/0.5 ML SYRINGE SQ SCH ×2 (20:11→20:12)
--- NOTE | 2022-04-06 20:57 | EEG ---
ELECTROENCEPHALOGRAM REPORT DATE OF SERVICE: 04/06/2022. CLINICAL HISTORY: This is a 51-year-old woman with a syncopal episode. The video EEG is obtained to evaluate for seizure epileptiform activity. RELEVANT MEDICATION: The patient is not on any antiepileptic drugs. EEG TYPE: A routine 21-channel EEG is performed with video using the 10/20 electrode placement system. DESCRIPTION: Wakefulness is obtained. During awake state, the posterior-dominant rhythm consists of low voltage of 9 hertz activity. There is no physiological stage 2 sleep architecture seen. There is no focal slowing. Interictal and ictal is none. ACTIVATION PROCEDURE: Photic stimulation did evoke a posterior driving response at multiple low flash frequencies. There is no abnormality during the photic stimulation. Hyperventilation was not performed. CLINICAL INTERPRETATION: This is a normal routine EEG. There is no focal slowing, epileptiform discharge or seizure on the EEG. Clinical correlation is recommended. ISAAK / MANUEL: [id number] / [id number]
--- NOTE | 2022-04-06 22:19 | P.HPIM ---
History of Present Illness H&P Date: 04/06/22 Chief Complaint: Right-sided weakness. Patient is a 51-year-old female with a known history of hypertension, hypothyroidism and aortic stenosis and is on follow-up with cardiology in the clinic and history of COVID-19 infection in September 2021 presents to ER with complaints of right-sided weakness and neck pain. Patient states that her symptoms started on Monday and she began dragging her right foot due to weakness. On Monday she did have 2 episodes of syncope in the bathroom and had a fall and hit her head on her vanity in the bathroom. Patient does not know how long she was on the floor. Patient states that her symptoms progressed to right-sided facial droop and right upper extremity weakness. Presented to ER for evaluation. No prior history of CVA. Denied any blurred vision. No headache. No fever no chills. No chest pain or shortness of breath. No nausea vomiting abdominal pain or diarrhea. Denies any recent illnesses. On admission blood pressure 137/76 pulse is 57 respirations 16 and pulse ox 100% on room air. CT head showed no acute intracranial abnormality. Severe right maxillary sinusitis with some expansion and follow-up is recommended. This could be a mucocele. CT angiography of the head and neck showed negative CT angio of the neck. There is a very small A1 segment right anterior cerebral artery which is likely developmental. Acquired stenosis is not actively excluded. Chest x-ray showed normal chest. No changes. EKG showed sinus bradycardia with short CO interval. Laboratory showed WBC 11.3 hemoglobin 12.7 and platelets 384 Sodium 138 potassium 4.8 chloride 102 bicarb is 26 BUN 14 and creatinine 1.15 TSH 0.274 and free T4 level is 1.71 Urinalysis is negative for infection. Review of Systems Constitutional: Patient denies any fever or chills . Generalized weakness. Abdomen: Patient denied any nausea or vomiting or abd. pain Cardiovascular: Patient denies any chest pain or short of breath no palpitations. Respiratory: patient denied any cough is from production. No shortness of breath Neurologic: Patient denied any numbness or tingling headache.Right-sided weakness. Musculoskeletal: Patient denies any complaints of joint swelling or deformity. Skin: Negative Psychiatric: Negative Endocrine: No heat or cold intolerance. No recent weight gain. Genitourinary: No dysuria or hematuria. All other 14 point ROS negative except the above Past Medical History Past Medical History: Hypertension, Thyroid Disorder Additional Past Medical History / Comment(s): aortic stenosis , Covid 09/2021, History of Any Multi-Drug Resistant Organisms: None Reported Past Surgical History: Tubal Ligation Past Anesthesia/Blood Transfusion Reactions: No Reported Reaction Past Psychological History: No Psychological Hx Reported Smoking Status: Never smoker Past Alcohol Use History: Occasional Past Drug Use History: None Reported Medications and Allergies Home Medications Medication Instructions Recorded Confirmed Type Losartan-Hctz 50-12.5 mg [Hyzaar 1 tab PO DAILY 10/06/17 04/05/22 History 50-12.5] Levothyroxine Sodium [Synthroid] 88 mcg PO AC-BRKFST 11/03/18 04/05/22 History Atorvastatin [Lipitor] 40 mg PO DAILY 04/05/22 04/05/22 History Ibuprofen [Motrin Ib] 200 - 400 mg PO Q8H PRN 04/05/22 04/05/22 History Metoprolol Succinate (ER) [Toprol 25 mg PO DAILY 04/05/22 04/05/22 History Xl] Allergies Allergy/AdvReac Type Severity Reaction Status Date / Time lisinopril AdvReac Cough Verified 04/05/22 19:36 Physical Exam Vitals: Vital Signs Temp Pulse Pulse Resp BP BP Pulse Ox 04/06/22 08:00 61 17 04/06/22 07:50 97.6 F 61 17 115/67 99 04/06/22 04:00 97.6 F 55 L 19 121/70 97 04/05/22 23:44 98.2 F 51 L 18 111/66 98 04/05/22 21:06 97.9 F 49 L 19 130/79 96 04/05/22 21:01 53 L 16 121/71 99 04/05/22 18:00 64 18 136/85 04/05/22 17:29 98.3 F 57 L 16 137/76 100 Intake and Output 04/05/22 04/06/22 04/06/22 22:59 06:59 14:59 Intake Total 118 Balance 118 Intake: Oral 118 Other: Voiding Method Toilet Toilet # Voids 0 1 Weight 54.431 kg PHYSICAL EXAMINATION: Patient is lying in the bed comfortably, no acute distress, awake alert and oriented.. HEENT: Normocephalic. Neck is supple. Pupils reactive. Nostrils clear. Oral cavity is moist. Neck reveals no JVD, carotid bruits, or thyromegaly. CHEST EXAMINATION: Trachea is central. Symmetrical expansion. Lung colby clear to auscultation and percussion. CARDIAC: Normal S1, S2 with no gallops. No murmurs ABDOMEN: Soft. Bowel sounds present. Nontender. No organomegaly. No abdominal bruits. Extremities: reveal no edema. No clubbing or cyanosis Neurologically awake, alert, oriented x3. Patient does right upper extremity and lower extremity weakness 4 out of 5. No sensory deficit. Skin: No rash or skin lesions. Psychiatric: Coperative. Nonsuicidal, anxious. Musculoskeletal: No joint swelling or deformity. Normal range of motion. Results CBC & Chem 7: 04/05/22 18:28 04/05/22 18:27 Labs: Abnormal Lab Results - Last 24 Hours (Table) 04/05/22 04/05/22 04/05/22 Range/Units 17:54 18:27 18:28 WBC 11.3 H (3.8-10.6) k/uL Neutrophils # 8.0 H (1.3-7.7) k/uL Creatinine 1.15 H (0.52-1.04) mg/dL Glucose 108 H (74-99) mg/dL POC Glucose (mg/dL) 126 H (70-110) mg/dL Alkaline Phosphatase 31 L (38-126) U/L HDL Cholesterol (40.00-60.00) mg/dL 04/06/22 Range/Units 07:28 WBC (3.8-10.6) k/uL Neutrophils # (1.3-7.7) k/uL Creatinine (0.52-1.04) mg/dL Glucose (74-99) mg/dL POC Glucose (mg/dL) (70-110) mg/dL Alkaline Phosphatase (38-126) U/L HDL Cholesterol 37.90 L (40.00-60.00) mg/dL Thrombosis Risk Factor Assmnt - DVT/VTE Prophylaxis DVT/VTE Prophylaxis: Pharmacologic Prophylaxis ordered - Choose All That Apply Each Factor Represents 1 point: Age 41-60 years Thrombosis Risk Factor Assessment Total Risk Factor Score: 1 Thrombosis Risk Factor Assessment Level: Low Risk Assessment and Plan Assessment: Right-sided weakness with facial droop likely due to acute CVA. Syncopal episode x2 Right-sided maxillary sinusitis Mild aortic stenosis Hypertension Hypothyroidism DVT prophylaxis with heparin subcu Plan: Patient will be continued on telemetry monitoring. Started on aspirin and statins. Patient had a CT head and CT angio of the head and neck showed no acute abnormality noted. MRI of the brain was ordered as per neurology recommendations. Continue with home blood pressure medications and her home medications. Hyzaar changed to losartan. Will be started on antibiotics for right maxillary sinusitis. 2D echocardiogram was ordered and cardiology is on board. Continue to follow closely. Time with Patient: Greater than 30
[2022-04-07] MEDS: SODIUM CHLORIDE 0.9% 1,000 ML IV SCH (04:07)
[2022-04-07] MEDS: LEVOTHYROXINE 88 MCG TAB PO SCH (06:32)
[2022-04-07] MEDS: ATORVASTATIN 40 MG TAB PO SCH (08:39)
[2022-04-07] MEDS: ASPIRIN 325 MG TAB PO SCH (08:39)
[2022-04-07] MEDS: HEPARIN SODIUM,PORCINE/PF 5,000 UNIT/0.5 ML SYRINGE SQ SCH (08:40)
[2022-04-07] MEDS: METOPROLOL SUCCINATE (ER) 25 MG TAB.ER.24H PO SCH (08:40)
[2022-04-07 08:43] LABS: Basophils % (A) 0 %; Eosinophils # (A) 0.1 k/uL (0-0.7); Eosinophils % (A) 2 %; HCT 35.3 % (34.0-46.0); HGB 11.7 gm/dL (11.4-16.0); Lymphocytes # (A) 1.7 k/uL (1.0-4.8); Lymphocytes % (A) 30 %; MCH 30.8 pg (25.0-35.0); MCHC 33.2 g/dL (31.0-37.0); MCV 92.6 fL (80.0-100.0); Mean Platelet Volume 7.6; Monocytes # (A) 0.3 k/uL (0-1.0); Monocytes % (A) 5 %; Neutrophils # (A) 3.4 k/uL (1.3-7.7); Neutrophils % (A) 61 %; Platelet Count 335 k/uL (150-450); RBC 3.81 m/uL (3.80-5.40); RDW 12.8 % (11.5-15.5); WBC 5.6 k/uL (3.8-10.6)
[2022-04-07 08:59] LABS: Calcium 9.3 mg/dL (8.4-10.2); Potassium 4.2 mmol/L (3.5-5.1)
[2022-04-07] MEDS ORDERED: LOSARTAN 50 MG TAB PO SCH (09:00)
[2022-04-07 09:23] VITALS: BP 125/66; PULSE 54; RESP 18; TEMP 97.9
--- NOTE | 2022-04-07 10:31 | P.PN ---
Subjective Progress Note Date: 04/07/22 The patient is seen at bedside and feels is doing better. She feels her strength over the right side is improving. Denies any further numbness. Her headache has resolved. Denies any further passing out episodes. Objective - Vital Signs Vital signs: Vital Signs Temp 98.2 F 04/07/22 04:00 Pulse 61 04/07/22 04:00 Resp 19 04/07/22 04:00 BP 107/68 04/07/22 04:00 Pulse Ox 98 04/07/22 04:00 FiO2 Intake & Output 04/06/22 04/07/22 04/07/22 18:59 06:59 18:59 Intake Total 1198 Balance 1198 Intake: Intake, IV Titration 600 Amount Sodium Chloride 0.9% 1, 600 000 ml @ 100 mls/hr IV . Q10H [facility] Rx#:[id number] Oral 598 Other: Voiding Method Toilet Toilet # Voids 1 # Bowel Movements 3 - Exam GENERAL: The patient is lying in bed and is not in acute distress. NEUROLOGICAL: Higher mental function: The patient is awake, alert, oriented to self, place and time. Patient is following commands. No aphasia and no neglect. Cranial nerves: The pupils are round, equal and reactive to light and accommodation. Visual colby are full to confrontation throughout. Extraocular movement is intact no nystagmus is noted. Facial sensation is normal to touch throughout. The facial strength is normal throughout. Hearing is normal bilaterally to hand rub. Tongue is midline and moved [id number] without any difficulty. No dysarthria is noted. Shoulder shrug is normal bilaterally. Motor: Gait is deferred. The strength is right upper extremity is 4+ to 5-. Right lower is 5-. Otherwise 5 over 5 on left. Normal tone and bulk. Cerebellum: Normal finger to nose and heel to white bilaterally. Sensation: Sensation is normal to touch throughout. Reflexes (right/left): 3+ over bilateral patellar and right brachioradialis. Otherwise 2+ throughout. Plantars are downgoing bilaterally. Some other workup in our facility consisted of: Urinalysis is negative for urinary tract infection Lipid panel is triglyceride of 116, cholesterol 119, LDL 57 and HDL 37 TSH is up 0.274 in the free T4 is 1.71 CT of the head is reported as no acute intracranial abnormality. Severe right maxillary sinusitis with some expansion and follow-up is recommended. This could be a mucocele. I personally reviewed the CT of the head and there is no acute or subacute ischemia there is no intraparenchymal hemorrhage. CT angiography of the head and neck is CT angiography of the neck was reported as negative. While the CT of the head is there is very small A1 segment right anterior cerebral artery likely developmental acquired stenosis is not excluded that. The distal right anterior cerebral artery appears to fill normally through the anterior communicating artery. MRI the brain is reported as no acute intracranial abnormality. Right-sided axillary and ethmoid sinusitis. Mild right frontal sinusitis. No evidence of the mind disease. MRI of the cervical spine with and without is reported as posterior right-sided C6-C7 cervical disc herniation without significant spinal stenosis. 6 mm minimal spinal stenosis at C5-C6 due to facet arthropathy and minimal disc bulg ing. 2-D echo is reported as normal left ventricular ejection fraction of 55-60. Inconclusive bubble study secondary to to poor window. Recommend RIA if cochlear indicated. Trace mitral regurgitation. Left atrium is normal in size. Venous duplex is negative for DVT in the lowers - Labs CBC & Chem 7: 04/07/22 08:05 04/07/22 08:05 Labs: Abnormal Lab Results - Last 24 Hours (Table) 04/06/22 04/06/22 04/07/22 Range/Units 07:28 07:28 08:05 Glucose 133 H (74-99) mg/dL HDL Cholesterol 37.90 L (40.00-60.00) mg/dL TSH 0.274 L (0.465-4.680) mIU/L Assessment and Plan Assessment: * Acute right-sided weakness, numbness, severe headache, 2 episodes of syncopal episodes (patient has been having symptoms since this past Monday but refusing medical attention). On examination has mild weakness over the right side. Unsure exact cause. Possible complicated migraine vs TIA. MRI of the brain and cervical spine is negative for any acute or subacute ischemic stroke. And MRIs are negative for any radiographic demylinating disease. * 2 recent Syncopal episode unknown etiology. EEG is normal. * Hypertension * Hypothyroidism * Amor's disease * Mild Aortic stenosis Plan: Continue aspirin 325 daily (new during this hospital). I also started the patient on Plavix 75 mg daily. The patient to be on dual antiplatelets for 21 days and after 21 days stop Plavix but continue aspirin. Continue home Lipitor 40 mg daily for secondary stroke prophylaxis. Continue neuro checks On cardiac monitoring PT OT and LEGAL WRITING PROFESSOR are consulted Cardiology is consulted by primary team If patient has any further episodes of LOC, syncopal episodes, jerking of extremities then recommend prolonged EEG as outpatient. Consider Lumbar puncture with routine CSF study and oligoclonal bands. Patients wants to have consideration of lumbar puncture as outpatient and not inpatient. For cervical spondylosis recommend the patient to follow-up with orthopedic is an outpatient. We'll defer the rest of the medical management to the primary team For DVT prophylaxis On subq heparin 5000U every 12 hours. Recommend patient to follow-up with neurologist as outpatient within 1-2 weeks. The plan is discussed with patient, her who is at bedside and her nurse in detailed. No additional work-up and patient is clear for discharge from neurological pe rspective. Nino Prasad M.D. Neuro-hospital Time with Patient: Less than 30
--- NOTE | 2022-04-07 12:37 | P.PN ---
Subjective Progress Note Date: 04/07/22 HISTORY OF PRESENT ILLNESS: This is a 51-year-old female with a past medical history significant for hypertension, hyperlipidemia, and hypothyroidism. Patient follows in the office with Dr. Au. We have been asked to see the patient in consultation for syncope. Patient examined at the bedside. Patient presented to the hospital after having a syncopal episode at home. She reports having a really bad headache and palpitations. She states she was in the bathroom when she passed out and hit her head on the counter. She reports having right sided weakness and numbness. She denies any chest pain or pressure. She denies any shortness of breath. Vital signs are stable. Patient reports she checked her blood pressure at home and it was in the 110s with a heart rate in the 50s. * EKG reveals sinus mechanism with a heart rate in the 50s. * Chest xray negative for acute process * Laboratory data: WBC 11.3. Hemoglobin 12.7. Platelet count 384. Sodium 138. Potassium 4.8. BUN 14. Creatinine 1.15. Troponin negative 1. * Current home cardiac medications include metoprolol succinate 25 mg daily, Lipitor 40 mg daily, Hyzaar 50-12.5mg daily * Echocardiogram completed revealing ejection fraction 55-60%, bubble study completed but inconclusive due to poor images, trace mitral regurgitation, trace tricuspid regurgitation 04/07/2022 Patient examined this morning at the bedside. Patient denies chest pain or pressure. She denies shortness of breath. Patient has been up ambulating without any venous this. She states her weakness has resolved. Echocardiogram completed revealing preserved ejection fraction. PHYSICAL EXAM: VITAL SIGNS: Reviewed. GENERAL: Well-developed in no acute distress. HEENT: Head is normocephalic. Pupils are equal, round. Sclerae anicteric. Mucous membranes of the mouth are moist. Neck supple. No JVD or thyromegaly LUNGS: Respirations even and unlabored. Lungs essentially clear to auscultation bilaterally. HEART: Regular rate and rhythm. S1 and S2 heard. Systolic murmur. ABDOMEN: Soft. Nondistended. Nontender. EXTREMITIES: Normal range of motion. No clubbing or cyanosis. Peripheral pulses intact. No lower extremity edema NEUROLOGIC: Awake and alert. Oriented x 3. ASSESSMENT: Syncope Right sided weakness, r/o CVA Hypertension Hyperlipidemia Mild aortic stenosis, per echo in 2019 PLAN: Continue current cardiac medications No further inpatient recommendations from a cardiac standpoint We will sign off. Please reconsult if needed. Nurse practitioner note has been reviewed by physician. Signing provider agrees with the documented findings, assessment, and plan of care. Objective - Vital Signs Vital signs: Vital Signs Temp 97.9 F 04/07/22 08:00 Pulse 54 L 04/07/22 08:00 Resp 18 04/07/22 08:00 BP 125/66 04/07/22 08:00 Pulse Ox 98 04/07/22 08:00 FiO2 Intake & Output 04/06/22 04/07/22 04/07/22 18:59 06:59 18:59 Intake Total 1198 Balance 1198 Intake: Intake, IV Titration 600 Amount Sodium Chloride 0.9% 1, 600 000 ml @ 100 mls/hr IV . Q10H [facility] Rx#:[id number] Oral 598 Other: Voiding Method Toilet Toilet # Voids 1 # Bowel Movements 3 - Labs CBC & Chem 7: 04/07/22 08:05 04/07/22 08:05 Labs: Abnormal Lab Results - Last 24 Hours (Table) 04/06/22 04/07/22 Range/Units 07:28 08:05 Glucose 133 H (74-99) mg/dL TSH 0.274 L (0.465-4.680) mIU/L
[2022-04-08] MEDS ORDERED: CLOPIDOGREL 75 MG TAB PO SCH (09:00)
--- NOTE | 2022-04-12 17:41 | CDI ---
Documentation Clarification Form Date: 04/12/2022 05:23:53 PM From: Keyana Archer RN, CCDS Admit Date: 04/05/2022 08:44:00 PM Patient Name: Nitza Rao Visit Number: [id number] Discharge Date: 04/07/2022 12:58:00 PM ATTENTION: The Clinical Documentation Specialists (CDI) and [facility] Coding Staff appreciate your assistance in clarifying documentation. Please respond to the clarification below the line at the bottom and electronically sign. The CDI & [facility] Coding staff will review the response and follow-up if needed. Please note: Queries are made part of the Legal Health Record. If you have any questions, please contact the author of this message via ITS. Dr. Prabhu Marie The patients principal diagnosis the diagnosis that was chiefly responsible for the admission - has not been clearly identified and clarification is requested. 04/07 Neurology progress note: Denies any further numbness. Her headache has resolved Assessment: Acute right-sided weakness, numbness, severe headache, 2 episodes of syncopal episodes. On exam has mild weakness over the right side. Unsure exact cause. Possible complicated migraine vs TIA. The patient presented with the following: Right sided weakness, dragging her fight foot due to weakness. She reports 2 syncopal episodes. History/Risk factors: Syncope, Hypertension, Thyroid disorder Clinical Indicators: 51-year-old female present to ER with notable facial droop and weakness in her right upper and lower extremity. CT angiography demonstrates a very small A1 segment of the right anterior cerebral artery which is likely developmental. No other acute findings. 04/05 Lab findings: WBC 11.3 Neutrophils 8.0, Creatinine 1.15 Glucose 108, 04/05 CT Brain: No acute intracranial abnormality 04/05 Vital Signs: 137/76 57 16 98.3 100 % RA 04/06 Brain MRI: Negative Treatment: Cardiac/Telemetry monitoring Neuro checks per protocol ASA 325 MG PO Daily, Plavix 75MG PO Daily, Lipitor 40 MG Daily In your professional opinion, can you please clarify which diagnosis, after study, was the reason chiefly responsible for the admission? [ ] CVA [ ] TIA due to [ x ] Complicated Migraine (further specify if known) [ ] Other, please specify [ ] Unable to determine (Template Last Revised: November 2020) MTDD
--- NOTE | 2022-04-26 22:23 | P.DS ---
Providers Date of admission: 04/05/22 20:44 Expected date of discharge: 04/07/22 Attending physician: Ruth Larson Consults: 04/05/22 20:34 Consult Physician Urgent Consulting Provider: Nino Prasad Consult Reason/Comments: right side weakness, possible cva Do you want consulting provider notified?: Yes 04/06/22 09:46 Consult Physician Routine Consulting Provider: Kwabena Parks Consult Reason/Comments: syncopal event Do you want consulting provider notified?: Yes Primary care physician: Fabian [facility] Hospital Course: Discharge diagnosis Right-sided weakness with facial droop likely due to TIA. acute CVA noted on MRI. Syncopal episode x2 Right-sided maxillary sinusitis Mild aortic stenosis Hypertension Hypothyroidism DVT prophylaxis with heparin subcu Hospital course Patient is a 51-year-old female with a known history of hypertension, hypothyroidism and aortic stenosis and is on follow-up with cardiology in the clinic and history of COVID-19 infection in September 2021 presents to ER with complaints of right-sided weakness and neck pain. Patient states that her symptoms started on Monday and she began dragging her right foot due to weakness. On Monday she did have 2 episodes of syncope in the bathroom and had a fall and hit her head on her vanity in the bathroom. Patient does not know how long she was on the floor. Patient states that her symptoms progressed to right-sided facial droop and right upper extremity weakness. Presented to ER for evaluation. No prior history of CVA. Denied any blurred vision. No headache. No fever no chills. No chest pain or shortness of breath. No nausea vomiting abdominal pain or diarrhea. Denies any recent illnesses. On admission blood pressure 137/76 pulse is 57 respirations 16 and pulse ox 100% on room air. CT head showed no acute intracranial abnormality. Severe right maxillary sinusitis with some expansion and follow-up is recommended. This could be a mucocele. CT angiography of the head and neck showed negative CT angio of the neck. There is a very small A1 segment right anterior cerebral artery which is likely developmental. Acquired stenosis is not actively excluded. Chest x-ray showed normal chest. No changes. EKG showed sinus bradycardia with short GA interval. Laboratory showed WBC 11.3 hemoglobin 12.7 and platelets 384 Sodium 138 potassium 4.8 chloride 102 bicarb is 26 BUN 14 and creatinine 1.15 TSH 0.274 and free T4 level is 1.71 Urinalysis is negative for infection. 04/07/2022 Patient is currently resting in bed. Awake alert oriented x3. No further episodes of syncope in the hospital. Denies any complaints of chest pain. No shortness of breath. Patient is ambulating without dizziness. Weakness has resolved. 2D echocardiogram showed preserved ejection fraction. Patient was seen by cardiology and neurology. Work-up including MRI of the brain and cervical spine was done. No acute or subacute ischemic stroke was noted. Patient was started on Plavix and continue with aspirin. Recommended to continue with Plavix for 21 days. Continue with statins. Outpatient long-term EEG was recommended by neurology. Patient was also recommended to follow-up with orthopedic surgery for cervical spondylosis. Otherwise patient is cleared for discharge from neurology standpoint. Patient is being discharged home today. Patient will also be continued on antibiotics in the fall Augmentin for right- sided maxillary sinusitis. PHYSICAL EXAMINATION: Patient is lying in the bed comfortably, no acute distress, awake alert and oriented.. HEENT: Normocephalic. Neck is supple. Pupils reactive. Nostrils clear. Oral cavity is moist. Neck reveals no JVD, carotid bruits, or thyromegaly. CHEST EXAMINATION: Trachea is central. Symmetrical expansion. Lung colby clear to auscultation and percussion. CARDIAC: Normal S1, S2 with no gallops. No murmurs ABDOMEN: Soft. Bowel sounds present. Nontender. No organomegaly. No abdominal bruits. Extremities: reveal no edema. No clubbing or cyanosis Neurologically awake, alert, oriented x3. Patient does right upper extremity and lower extremity weakness 4 out of 5. No sensory deficit. Skin: No rash or skin lesions. Psychiatric: Coperative. Nonsuicidal, anxious. Musculoskeletal: No joint swelling or deformity. Normal range of motion. Vital signs: Vital Signs Temp 97.9 F 04/07/22 08:00 Pulse 54 L 04/07/22 08:00 Resp 18 04/07/22 08:00 BP 125/66 04/07/22 08:00 Pulse Ox 98 04/07/22 08:00 FiO2 Intake & Output 04/06/22 04/07/22 04/07/22 18:59 06:59 18:59 Intake Total 1198 Balance 1198 Intake: Intake, IV Titration 600 Amount Sodium Chloride 0.9% 1, 600 000 ml @ 100 mls/hr IV . Q10H [facility] Rx#:[id number] Oral 598 Other: Voiding Method Toilet Toilet # Voids 1 # Bowel Movements 3 Patient Condition at Discharge: Stable Plan - Discharge Summary Discharge Rx Participant: No New Discharge Prescriptions: New Aspirin 325 mg PO DAILY #30 tab Losartan [Cozaar] 50 mg PO DAILY #30 tab Clopidogrel [Plavix] 75 mg PO DAILY #21 tab Amoxic-Pot Clav 875-125Mg [Augmentin 875-125] 1 tab PO BID 7 Days #14 tab Continue Levothyroxine Sodium [Synthroid] 88 mcg PO AC-BRKFST Atorvastatin [Lipitor] 40 mg PO DAILY Metoprolol Succinate (ER) [Toprol XL] 25 mg PO DAILY Discontinued Losartan-Hctz 50-12.5 mg [Hyzaar 50-12.5] 1 tab PO DAILY Ibuprofen [Motrin Ib] 200 - 400 mg PO Q8H PRN PRN Reason: Fever And/ Or Pain Discharge Medication List Levothyroxine Sodium [Synthroid] 88 mcg PO AC-BRKFST 11/03/18 [History] Atorvastatin [Lipitor] 40 mg PO DAILY 04/05/22 [History] Metoprolol Succinate (ER) [Toprol XL] 25 mg PO DAILY 04/05/22 [History] Amoxic-Pot Clav 875-125Mg [Augmentin 875-125] 1 tab PO BID 7 Days #14 tab 04/07/22 [Rx] Aspirin 325 mg PO DAILY #30 tab 04/07/22 [Rx] Clopidogrel [Plavix] 75 mg PO DAILY #21 tab 04/07/22 [Rx] Losartan [Cozaar] 50 mg PO DAILY #30 tab 04/07/22 [Rx] Follow up Appointment(s)/Referral(s): Fabian Barraza III, MD [Primary Care Provider] - 1-2 days (Please call to make a follow-up appointment, office was closed when I called. ) Discharge Disposition: HOME SELF-CARE
== END 2022-04-07 12:58 | disposition home or self-care (01) | DRG 103 ==
LOC: EC 17:27 → 3SCARD 20:44
PROVIDERS: ADMIT Hospitalist; ATTEND Hospitalist
PROC: 4A10X4Z Monitoring of Central Nervous Electrical Activity, External Approach (ICD-10-PCS; principal; 2022-04-06)
DX: G43.109 Migraine with aura, not intractable, without status migrainosus (principal); G81.91 Hemiplegia, unspecified affecting right dominant side; R55 Syncope and collapse; M46.92 Unspecified inflammatory spondylopathy, cervical region; M48.02 Spinal stenosis, cervical region; R29.810 Facial weakness; I08.3 Combined rheumatic disorders of mitral, aortic and tricuspid valves; E06.3 Autoimmune thyroiditis; E78.5 Hyperlipidemia, unspecified; I10 Essential (primary) hypertension; J32.0 Chronic maxillary sinusitis; W19.XXXA Unspecified fall, initial encounter; Z79.890 Hormone replacement therapy; Z79.899 Other long term (current) drug therapy; Z80.8 Family history of malignant neoplasm of other organs or systems; Z86.16 Personal history of COVID-19; Z88.8 Allergy status to other drugs, medicaments and biological substances; Z98.51 Tubal ligation status; Z79.02 Long term (current) use of antithrombotics/antiplatelets; Z79.82 Long term (current) use of aspirin
CPT/HCPCS: 36415; 70450; 70496; 70498; 70544; 70553; 71046; 72156; 80048; 80053; 80061; 81003; 84439; 84443; 84484; 85025; 85610; 85730; 93005; 93306; 93970; 95816; 96361; 96374; 96375; 99285

== ENCOUNTER 2022-07-15 07:36 | Day surgery (SDC) | payer OTHER ==
[2022-07-13 10:03] VITALS: BMI 25.0
[2022-07-15] MEDS ORDERED: SODIUM CHLORIDE 0.9% 500 ML 500 ML IV ONE (08:02)
[2022-07-15 08:12] VITALS: TEMP 99.1
[2022-07-15] MEDS ORDERED: BENZOCAINE SPRAY 1 CAN TOPICAL ONE ×2 (08:55→09:12)
[2022-07-15] MEDS ORDERED: MIDAZOLAM 2 MG/2 ML VIAL IVP ONE ×2 (09:12→09:15)
[2022-07-15] MEDS ORDERED: fentaNYL (PF) 50 MCG/1 ML VIAL IVP ONE ×2 (09:12→09:15)
[2022-07-15 09:20] VITALS: RESP 16
--- NOTE | 2022-07-15 09:29 | P.PCN ---
Date of Procedure: 07/15/22 Operative Findings: TRANSESOPHAGEAL ECHOCARDIOGRAM PARTITION ASSEMBLY MACHINE OPERATOR: AMALIA CRAWFORD MD, RPVI INDICATION: Rule out patent foramen ovale SEDATION: Conscious sedation COMPLICATION: None LEVEL OF SEDATION Moderate with sedation in length of 12 minutes PROCEDURE DESCRIPTION: After obtaining an informed consent, the patient was brought to transesophageal echocardiogram room. Pulse oximetry and heart monitors were attached to the patient. The patient throat was sprayed using lidocaine. The patient was turned into left lateral position. After that a bite guard was placed. After an appropriate conscious sedation was initiated, the transesophageal echocardiogram was advanced through a bite guard into the mid esophagus. A 2-D echocardiogram images, color Doppler images, continuous wave images, pulse-wave images, of various cardiac structure were performed. After that the transesophageal echocardiogram probe was advanced into the stomach and fixed to obtain transgastric view was. The probe was brought into the mid esophagus. Inter-atrial septum was interrogated using 2D images, color Doppler images, and then contrast study. After that transesophageal echocardiogram was withdrawn out and upon withdrawing the descending thoracic aorta all the way up to the arch was evaluated. FINDING: The old be dimension and systolic function appeared to be within normal limits. The ejection fraction appeared to be in the range of 60%. The right ventricle appeared to be of normal dimension and systolic function as well. The left atrium is mildly dilated. Left atrium appendage appeared to be free from any thrombus. The interatrial septum appears to be intact with no evidence off shunt. The aortic valve is trileaflet valve without stenosis or regurgitation. The mitral valve seems to be normal with mild to moderate MR. Mild to moderate tricuspid regurgitation seen. No evidence of pericardial effusion CONCLUSION: 1. Intact interatrial septum was no PFO or ASD. Intact left atrium appendage 2. Normal left ventricular dimension and systolic function 3. Normal right ventricular dimension and systolic function 4 . Normal tricuspid valve and pulmonic valve 5. No evidence of pericardial effusion
[2022-07-15] MEDS ORDERED: ONDANSETRON 4 MG/2 ML VIAL ONE (10:32)
[2022-07-15] MEDS ORDERED: ONDANSETRON 4 MG/2 ML VIAL IVP STA (10:32)
[2022-07-15 14:00] VITALS: BP 118/72; PULSE 62
== END 2022-07-15 11:05 | disposition home or self-care (01) ==
LOC: CATHCVL 07:36
PROVIDERS: ATTEND Internal Medicine Interventional Cardiology
DX: I35.0 Nonrheumatic aortic (valve) stenosis (principal); E78.5 Hyperlipidemia, unspecified; I10 Essential (primary) hypertension; I47.1 Supraventricular tachycardia
CPT/HCPCS: 93312; 93320; 93325; J2250; J2405; J3010

== ENCOUNTER → 2022-10-13 | Outpatient (CLI) | payer OTHER ==
[2022-10-13 20:10] LABS: African American GFR (CKD) 67.8 (60.0-200.0); Albumin 4.9 g/dL (3.8-4.9); Albumin/Globulin Ratio 1.75 (1.60-3.17); Anion Gap 12.6 mmol/L (10.00-18.00); BUN/Creat Ratio 11.91 Ratio (12.00-20.00); Blood Urea Nitrogen 13.1 mg/dL (9.0-27.0); Calcium 10.5 mg/dL (8.7-10.3); Carbon Dioxide 26.4 mmol/L (20.0-27.5); Globulin 2.8 g/dL (1.6-3.3); Non-African American GFR(CKD) 58.5 (60.0-200.0); Potassium 5.2 mmol/L (3.5-5.5); Total Bilirubin 0.5 mg/dL (0.30-1.20); Total Protein 7.7 g/dL (6.2-8.2)
== END | disposition home or self-care (01) ==
LOC: LABWHC1 11:48
PROVIDERS: ATTEND Internal Medicine Endocrinology, Diabetes & Metabolism
DX: E21.0 Primary hyperparathyroidism (principal)
CPT/HCPCS: 36415; 80053; 82306; 83970

== ENCOUNTER → 2022-12-29 | Outpatient (CLI) | payer OTHER ==
--- NOTE | 2022-12-30 08:29 | MM ---
Reason for Exam: Screening (asymptomatic). Last screening mammogram was performed 12 month(s) ago. Patient History: Menarche at age 15. First Full-Term at age 18. Postmenopausal. Maternal aunt had breast cancer, age 40. Risk Values: Amelie 5 year model risk: 0.7%. NCI Lifetime model risk: 6.5%. Prior Study Comparison: 11/11/2019 Bilateral Screening Mammogram, LOCATED WITHIN [facility]. 11/27/2020 Bilateral Screening Mammogram, LOC[facility]IN [facility]. 12/23/2021 Bilateral Screening Mammogram, LOC[facility]IN [facility]. Tissue Density: The breast tissue is heterogeneously dense. This may lower the sensitivity of mammography. Findings: Analyzed By CAD. There is no suspicious group of microcalcifications or new suspicious mass in either breast. Benign calcification within the right breast. Overall Assessment: Benign, BI-RAD 2 Management: Screening Mammogram of both breasts in 1 year. A clinical breast exam by your physician is recommended on an annual basis and results should be correlated with mammographic findings. Electronically signed and approved by: Lance White D.O.
== END | disposition home or self-care (01) ==
LOC: RADMAMWWP 09:35
PROVIDERS: ATTEND Obstetrics & Gynecology
DX: Z12.31 Encounter for screening mammogram for malignant neoplasm of breast (principal); Z78.0 Asymptomatic menopausal state; Z80.3 Family history of malignant neoplasm of breast
CPT/HCPCS: 77063; 77067

== ENCOUNTER → 2023-05-26 | Outpatient (CLI) | payer OTHER ==
[2023-05-27 02:24] LABS: ALT 32 U/L (8-44); AST 33 U/L (13-35); Albumin 4.9 d/dL (3.8-4.9); Albumin/Globulin Ratio 1.96 Ratio (1.60-3.17); Alkaline Phosphatase 45 U/L (41-126); BUN/Creat Ratio 4.33 Ratio (12.00-20.00); Blood Urea Nitrogen 5.2 mg/dL (9.0-27.0); Calcium 10.5 mg/dL (8.7-10.3); Carbon Dioxide 26.6 mmol/L (21.6-31.8); Chloride 103 mmol/L (96-109); Globulin 2.5 d/dL (1.6-3.3); Glucose 76 mg/dL (70-110); Potassium 5.3 mmol/L (3.5-5.5); Sodium 140 mmol/L (135-145); Total Bilirubin 0.5 mg/dL (0.3-1.2); Total Protein 7.4 d/dL (6.2-8.2)
== END | disposition home or self-care (01) ==
LOC: LABWHC1 14:35
PROVIDERS: ATTEND Internal Medicine Endocrinology, Diabetes & Metabolism
DX: E03.8 Other specified hypothyroidism (principal)
CPT/HCPCS: 36415; 80053; 82306; 83970

== ENCOUNTER → 2023-12-18 | Outpatient (CLI) | payer BC ==
[2023-12-18 17:51] LABS: ALT 36 U/L (8-44); AST 28 U/L (13-35); Albumin 4.8 g/dL (3.8-4.9); Alkaline Phosphatase 51 U/L (41-126); BUN/Creat Ratio 7.18 Ratio (12.00-20.00); Blood Urea Nitrogen 7.9 mg/dL (9.0-27.0); Calcium 10.3 mg/dL (8.7-10.3); Carbon Dioxide 26.8 mmol/L (21.6-31.8); Chloride 103 mmol/L (96-109); Glucose 102 mg/dL (70-110); Potassium 4.5 mmol/L (3.5-5.5); Sodium 141 mmol/L (135-145); Total Bilirubin 0.4 mg/dL (0.3-1.2); Total Protein 7.8 g/dL (6.2-8.2)
== END | disposition home or self-care (01) ==
LOC: LABWHC1 09:56
PROVIDERS: ATTEND Internal Medicine Endocrinology, Diabetes & Metabolism
DX: E21.0 Primary hyperparathyroidism (principal); E03.8 Other specified hypothyroidism
CPT/HCPCS: 36415; 80053; 82306; 83970; 84443

== ENCOUNTER → 2024-01-01 | Outpatient (CLI) | payer BC ==
--- NOTE | 2024-01-02 18:52 | MM ---
Reason for Exam: Screening (asymptomatic). Last screening mammogram was performed 12 month(s) ago. Patient History: Menarche at age 15. First Full-Term at age 18. Postmenopausal. Maternal aunt had breast cancer, age 40. Risk Values: Amelie 5 year model risk: 0.7%. NCI Lifetime model risk: 6.4%. Prior Study Comparison: 11/27/2020 Bilateral Screening Mammogram, [facility]. 12/23/2021 Bilateral Screening Mammogram, [facility]. 12/29/2022 Bilateral MG 3D screening mammo w/cad, [facility]. Tissue Density: There are scattered areas of fibroglandular density. Findings: Analyzed By CAD. There is no suspicious group of microcalcifications or new suspicious mass in either breast. Overall Assessment: Negative, BI-RAD 1 Management: Screening Mammogram of both breasts in 1 year. . Patient should continue monthly self-breast exams. A clinical breast exam by your physician is recommended on an annual basis. This exam should not preclude additional follow-up of suspicious palpable abnormalities. Note on Amelie scores and lifetime risk: 1. A Amelie score greater than 3% is considered moderate risk. If this is the case, consider specialist referral to assess eligibility for a risk reducing agent. 2. If overall lifetime risk for the development of breast cancer is 20% or higher, the patient may qualify for future screening with alternating mammogram and breast MRI. Electronically signed and approved by: Rajan Caal M.D. Radiologist
== END | disposition home or self-care (01) ==
LOC: RADMAMWWP 08:06
PROVIDERS: ATTEND Family Medicine
DX: Z12.31 Encounter for screening mammogram for malignant neoplasm of breast (principal); Z78.0 Asymptomatic menopausal state; Z80.3 Family history of malignant neoplasm of breast
CPT/HCPCS: 77063; 77067